=== PATIENT | female | born 1960 | race Caucasian/White ===

== ENCOUNTER → 2018-09-17 09:53 | Outpatient (CLI) | payer OTHER, SELFPAY ==
--- NOTE | 2018-09-17 09:59 | US_ITS ---
US breast RT complete, US breast LT complete Ordering Physician: Nitish Betancourt MD Patient Age: 58 years: Female HISTORY: ..Patient feels palpable area right breast 4:00 Additional/history , per technologist, states palpable areas bilateral &. 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 Bilateral mammogram from today & 2016 --BILATERAL BREAST ULTRASOUND including axillary survey ... RIGHT BREAST ULTRASOUND. No suspicious findings. No significant new findings 2 o'clock:: Tiny barely evident 3 mm debris-filled cyst appears smaller than previous study. . The palpable area at 4:00 was specifically survey. No suspicious findings here. No cyst or mass. Underlying rib contour conceivably could be palpable feature here as it is merely 1.3 cm deep to the skin on this image Axillary region survey demonstrate scattered benign-appearing lymph nodes. 2 longest thin left nodes measure nearly 2 cm length Thanks for covering ... LEFT BREAST ULTRASOUND.: 1 o'clock position central breast.: Thin elongated area of tissue vs less likely elongated solid nodule.. Benign appearance either case Measuring up to 16 mm length x 2.5 mm AP... Well-defined margins smooth appearanceI. Favor this is merely a linear area of glandular tissue not of significant concern.. But can be followed 9:00 small hypoechoic focus of tissue vs elongated cyst. Less likely elongated small solid nodule Small 4.7 mm mm length x 2 mm AP. Unimpressive. Follow-up adequate and recommended. . Axillary survey. Scattered benign appearing axillary lymph nodes. Again note the history of fibroadenomas in this patient but these questionable areas above are very unimpressive and can be followed . IMPRESSION: 1. No areas of significant concern on today's bilateral breast Ultrasound nor mammogram 2.. Left breast ultrasound.... No new areas of concern ... Scanning at the palpable area 4:00 reveals No breast abnormalities. I would note shallow rib contour here which is merely 1.3 cm beneath the skin at this point- possibly correlates with the palpable area?. Requires clinical correlation. 3. Right breast ultrasound. Scattered very small small benign-appearing areas can be followed. Based on imaging alone follow-up in one year the adequate. However if any clinically suspicious palpable mass should arise would suggest interval or short-term reevaluation. BI-RADS Category: 2 Benign Finding(s) RECOMMENDED FOLLOWUP: 12M 12 MONTH FOLLOW-UP (A letter has been sent to the patient regarding results of the study.)
--- NOTE | 2018-09-17 09:59 | MM_ITS ---
MM Dig screening mamm BI w/CAD ORDERING PHYSICIAN : Nitish Betancourt MD PATIENT AGE: 58 years GENDER: Female COMPARISON: 03/07/2017 & September 2005 INDICATION: Routine: SCREENING No hormones. No new complaints. Noncontributory family history. Patient has had a previous stereotactic biopsy left breast. TECHNIQUE: Standard CC and MLO images were obtained. R2 CAD reviewed. FINDINGS: The 2017 mammogram is additional mammogram is most helpful.... Prominent Diffuse regression/involution breast tissue with moderate fatty replacement of density since 2005 Stable fibroglandular pattern bilaterally since 2017 LEFT MAMMOGRAM no new findings of concern Metallic marker clips from previous stereotactic biopsy seen at upper-outer quadrant left breast as well as inferio/medial left breast . No new findings of concern. No dominant mass nor suspicious calcification. CAD computer review highlights no areas of concern either. RIGHT MAMMOGRAM: no significant new findings in the breast. Today's image includes several Moderate size right axillary lymph nodes. Period.. IMPRESSION: Stable mammogram since 2017 No new areas of concern Bilateral follow-up mammogram in one year BI-RADS Category: 2 Benign Finding(s) RECOMMENDED FOLLOW-UP: 1YR 1 YEAR FOLLOW-UP (A letter has been sent to the patient regarding results of the study.)
== END ==
PROVIDERS: PCP Family Medicine; Visit Provider Family Medicine
DX: Z12.31 Encounter for screening mammogram for malignant neoplasm of breast (principal); N63.10 Unspecified lump in the right breast, unspecified quadrant; Z86.018 Personal history of other benign neoplasm
CPT/HCPCS: 76641; 77067

== ENCOUNTER → 2018-12-07 14:05 | Outpatient (CLI) | payer OTHER, SELFPAY | PROVIDERS: Visit Provider Obstetrics & Gynecology | DX: N39.0 Urinary tract infection, site not specified (principal) | CPT/HCPCS: 87086; 87088; 87186 ==

== ENCOUNTER → 2019-03-05 15:44 | Outpatient (CLI) | payer OTHER, SELFPAY ==
--- NOTE | 2019-03-05 15:55 | CT_ITS ---
PROCEDURE: CT LUNG SCREENING CLINICAL INDICATION: HX OF NICOTINE DEPENDENCE 30+ pack-year smoking history, asymptomatic for lung cancer COMPARISON: No exams were available for comparison TECHNIQUE: The exam was performed on a GE Light Speed [address] scanner using 2.90 mGy CTDI. A low dose helical CT CHEST was performed on a multi-detector scanner. All CT scans at the facility use one or more dose reduction, viz: automated exposure control, ma/kV adjustment per patient size (including targeted exams where dose is matched to indication, i.e. head), or iterative reconstruction technique. The LDCT was performed in a facility that meets the criteria for the screening program. Data regarding this exam was submitted to ACR which is an approved registry. The order for this exam indicates that it came as a result of a lung cancer screening counseling shard decision-making visit that included all the elements required of such a visit including smoking cessation. The radiologist interpreting this exam meets the CMS criteria for the LDCT lung cancer screening program. The exam is reported using the Lung-RADS classification scale and reported to the ACR registry. NOTE: This study was performed for the specific purposes of lung cancer screening and is not an alternative to diagnostic chest CT. RADIATION DOSE: CTDI vol(CT dose Index-volume) = 2.90mG DLP (Dose Length Product) = 101.60 mGcm FINDINGS: Centrilobular emphysema. Old granulomatous disease. Scattered areas of scarring. No suspicious pulmonary nodules. OTHER FINDINGS: Minimal thickening of the pericardium IMPRESSION: Lung rads category 2 benign. Recommend screening LD CT in 12 months Dictated by: Buck Frausto MD 03/26/2019 10:46 Signed by: <Electronically signed by Buck Frausto MD in [place]> 03/26/2019 10:46
== END ==
PROVIDERS: PCP Family Medicine; Visit Provider Nurse Practitioner Family
DX: Z12.2 Encounter for screening for malignant neoplasm of respiratory organs (principal); Z87.891 Personal history of nicotine dependence

== ENCOUNTER → 2019-03-12 12:44 | Outpatient (CLI) | payer OTHER, SELFPAY ==
--- NOTE | 2019-03-12 12:47 | XR_ITS ---
PROCEDURE: XR SHOULDER RT MIN 2V CLINICAL INDICATION: right shoulder pain. surgery by Dr Henson in 2015. COMPARISON: No exams were available for comparison FINDINGS: There is a small curvilinear area of increased density along the inferior aspect of the glenoid. This is nonspecific and may be due to some articular or capsular calcification. No subacromial stenosis. No acute fracture or dislocation. IMPRESSION: Minimal periarticular calcification along the inferior aspect of the shoulder joint otherwise negative Dictated by: Buck Frausto MD 03/12/2019 13:42 Signed by: <Electronically signed by Buck Frausto MD in [place]> 03/12/2019 13:42
== END ==
PROVIDERS: PCP Family Medicine; Visit Provider Orthopaedic Surgery
DX: M25.511 Pain in right shoulder (principal)
CPT/HCPCS: 73030

== ENCOUNTER → 2019-03-21 14:12 | Outpatient (CLI) | payer OTHER, SELFPAY ==
--- NOTE | 2019-03-21 14:13 | MR_ITS ---
PROCEDURE: MR SHOULDER RT WO CON CLINICAL INDICATION: evaluate for rotator cuff tear Right shoulder pain with limited range of motion COMPARISON: UEAJW/ORT MRI-UP EXT ANY JNT W/O-RT from 01/02/2015 XR SHOULDER RT MIN 2V from 03/12/2019 TECHNIQUE: Routine multiplanar multi echo sequences are performed without contrast. FINDINGS: There are mild hypertrophic changes of the acromioclavicular joint with sub acromial fluid noted. There is some lobular isointense signal along the undersurface of the supraspinatus tendon. This could be related to a partial tear of the supraspinatus tendon with some retraction of the fibers. There is history of previous shoulder surgery and this could also be postsurgical change. A complete supraspinatus tendon tear is not felt to be present. There is moderate thinning of the infraspinatus tendon with increased T2 signal which has developed since the previous exam and may be related to partial tear of the infraspinatus. Long head of biceps tendon is in place. No obvious labral tear. There is a small shoulder joint effusion. Small amount of fluid is present both along posterior and deep aspect of the infraspinatus tendon. Small subarticular cyst is present along the inferior aspect of the glenoid. IMPRESSION: 1. Lobular signal intensity along the deep aspect of the supraspinatus tendon which may be due to partial tear with fiber retraction 2. Thinning of the infraspinatus tendon which has developed since the previous exams and may be related to partial tear. A complete tear is not felt to be present of either the supraspinatus or infraspinatus tendon. 3. Fluid present in the subacromial region as well as the shoulder joint and posterior and deep to the infraspinatus tendon. Dictated by: Buck Frausto MD 03/23/2019 14:55 Electronically signed by Buck Frausto MD in [place] 03/29/2019 09:36
== END ==
PROVIDERS: PCP Family Medicine; Visit Provider Orthopaedic Surgery
DX: M25.511 Pain in right shoulder (principal); G89.29 Other chronic pain
CPT/HCPCS: 73221

== ENCOUNTER → 2019-06-24 13:27 | Outpatient (POV) | payer MEDICARE, OTHER, SELFPAY ==
[2019-06-24 13:28] VITALS: BP 143/85; PULSE 91; RESP 18; O2SAT 99; BMI 21.2
--- NOTE | 2019-06-24 13:55 | HMH.PAINSOAP ---
[facility] Pain Management SOAP Note Subjective:: Patient is a pleasant 58-year-old white female who presents today for follow-up. Patient is here for right SI joint pain. Patient was seen in our clinic several years ago. She had multiple injections that she feels were not beneficial. Patient I had a long discussion in regards to her pain. Most of its on her right side radiating however it does not past her knee. She has radiation into her groin as well. She has a positive Shreyas's test Rimma test and SI joint compression test on the right side. Patient and I talked about multiple options we will get some diagnostic imaging because she does not have any at this time. Also start her on an anti-inflammatory. Patient on I discussed an SI joint belt. ROS General: no recent weight change, no fever, no sleep disturbances Respiratory: no cough, no shortness of air, no recurring pulmonary infections Cardiovascular/Peripheral Vascular: No chest pain, No palpitations, no edema, no shortness of breath. Gastrointestinal: no new onset incontinence, normal bowel movements reported Genitourinary: no new onset incontinence Musculoskeletal: Right SI joint pain Psychiatric: normal mood/ affect Neurological: [denies new onset weakness in extremities], [denies new onset balance issues] Objective:: Physical Exam General: Alert and oriented x3, no acute distress, pleasant and cooperative, [on room air] Lungs: Resps E/U, Symmetrical chest expansion, Eyes: PERRL Musculoskeletal: Flexion and extension of lumbar spine somewhat guarded secondary to pain, deep tendon reflexes normal, strength in upper and lower extremities [5/5], [abnormal gait noted] Neurological: speech clear, noodle maker equal, no gross sensory deficits Assessment:: Sacroiliitis Plan:: We will start the patient on diclofenac 75 mg 1 p.o. twice daily will also encourage her to get an SI joint belt. I will follow-up with her after her diagnostic imaging next week. She is instructed to call the office if she has any issues prior to her next appointment. Patient and I did discuss a corner lock procedure. She is in a look into this as well. Dr. Reyes has reviewed this note and agrees with this plan of care. This note was dictated using voice recognition software and may contain errors or omissions [facility] History I have reviewed the patient's past medical history: Yes Medical History: Reports:: Anxiety, Chronic Obstructive Pulmonary Disease (COPD), Gastroesophageal Reflux Disease(GERD), Hypertension, Lung Disease Denies:: Diabetes Mellitus Type 1, Diabetes Mellitus Type 2, Internal Pacemaker, Seizures *Have you ever received a pneumonia vaccine?: Yes *Have you received a flu vaccine this season?: Yes Laterality Cases: Other Surgeries: Yes: Colonoscopy, Hysterectomy-Partial, Other (ACDF). No: Pacemaker - *Social History Smoking Status: Current every day smoker Tobacco Type: cigarettes # Packs/Day (cigarettes): 1 Alcohol Intake: never Alcohol Intake Frequency:: holidays/special occasions only Substance Use Type: denies use *Occupational Status:: other *Travel in the last 8 weeks: None - Psychiatric History Pschychiatric History:: Reports:: Anxiety Family Hx:: No significant family history
--- NOTE | 2019-06-24 13:58 | P.CONS_ITS ---
[facility] Pain Management SOAP Note Subjective:: Patient is a pleasant 58-year-old white female who presents today for follow-up. Patient is here for right SI joint pain. Patient was seen in our clinic several years ago. She had multiple injections that she feels were not beneficial. Patient I had a long discussion in regards to her pain. Most of its on her right side radiating however it does not past her knee. She has radiation into her groin as well. She has a positive Shreyas's test Rimma test and SI joint compression test on the right side. Patient and I talked about multiple options we will get some diagnostic imaging because she does not have any at this time. Also start her on an anti-inflammatory. Patient on I discussed an SI joint belt. ROS General: no recent weight change, no fever, no sleep disturbances Respiratory: no cough, no shortness of air, no recurring pulmonary infections Cardiovascular/Peripheral Vascular: No chest pain, No palpitations, no edema, no shortness of breath. Gastrointestinal: no new onset incontinence, normal bowel movements reported Genitourinary: no new onset incontinence Musculoskeletal: Right SI joint pain Psychiatric: normal mood/ affect Neurological: [denies new onset weakness in extremities], [denies new onset balance issues] Objective:: Physical Exam General: Alert and oriented x3, no acute distress, pleasant and cooperative, [on room air] Lungs: Resps E/U, Symmetrical chest expansion, Eyes: PERRL Musculoskeletal: Flexion and extension of lumbar spine somewhat guarded secondary to pain, deep tendon reflexes normal, strength in upper and lower extremities [5/5], [abnormal gait noted] Neurological: speech clear, restrictive preparation operator equal, no gross sensory deficits Assessment:: Sacroiliitis Plan:: We will start the patient on diclofenac 75 mg 1 p.o. twice daily will also encourage her to get an SI joint belt. I will follow-up with her after her diagnostic imaging next week. She is instructed to call the office if she has any issues prior to her next appointment. Patient and I did discuss a corner lock procedure. She is in a look into this as well. Dr. Reyes has reviewed this note and agrees with this plan of care. This note was dictated using voice recognition software and may contain errors or omissions [facility] History I have reviewed the patient's past medical history: Yes Medical History: Reports:: Anxiety, Chronic Obstructive Pulmonary Disease (COPD), Gastroesophageal Reflux Disease(GERD), Hypertension, Lung Disease Denies:: Diabetes Mellitus Type 1, Diabetes Mellitus Type 2, Internal Pacemaker, Seizures *Have you ever received a pneumonia vaccine?: Yes *Have you received a flu vaccine this season?: Yes Laterality Cases: Other Surgeries: Yes: Colonoscopy, Hysterectomy-Partial, Other (ACDF). No: Pacemaker - *Social History Smoking Status: Current every day smoker Tobacco Type: cigarettes # Packs/Day (cigarettes): 1 Alcohol Intake: never Alcohol Intake Frequency:: holidays/special occasions only Substance Use Type: denies use *Occupational Status:: other *Travel in the last 8 weeks: None - Psychiatric History Pschychiatric History:: Reports:: Anxiety Family Hx:: No significant family history
== END ==
PROVIDERS: PCP Family Medicine; Visit Provider Clinical Nurse Specialist Family Health
DX: M25.559 Pain in unspecified hip (principal); M46.1 Sacroiliitis, not elsewhere classified
CPT/HCPCS: 99212

== ENCOUNTER → 2019-06-27 13:34 | Outpatient (CLI) | payer MEDICARE, OTHER, SELFPAY ==
--- NOTE | 2019-06-27 13:50 | XR_ITS ---
PROCEDURE: XR SACROILIAC JOINT BI MIN 3V CLINICAL INDICATION: HIP PAIN Right-sided pain COMPARISON: No exams were available for comparison FINDINGS: The SI joints have an unremarkable appearance. No sclerosis/effusion or lytic change evident. IMPRESSION: Negative SI joints Dictated by: Buck Frausto MD 06/27/2019 14:15 Electronically signed by Buck Frausto MD in [place] 06/27/2019 14:15
--- NOTE | 2019-06-27 13:50 | XR_ITS ---
PROCEDURE: XR HIP RT 2-3V W/PELVIS CLINICAL INDICATION: HIP PAIN Right hip pain COMPARISON: No exams were available for comparison FINDINGS: No fracture or dislocation is evident. No significant degenerative change. No lytic or blastic change. Unremarkable soft tissues. IMPRESSION: Negative right hip Dictated by: Buck Frausto MD 06/27/2019 14:15 Electronically signed by Buck Frausto MD in [place] 06/27/2019 14:15
== END ==
PROVIDERS: PCP Family Medicine; Visit Provider Clinical Nurse Specialist Family Health
DX: M25.551 Pain in right hip (principal); M53.3 Sacrococcygeal disorders, not elsewhere classified
CPT/HCPCS: 72202; 73502

== ENCOUNTER → 2019-07-01 12:53 | Outpatient (POV) | payer MEDICARE, OTHER, SELFPAY ==
[2019-07-01 13:08] VITALS: BP 128/83; PULSE 95; RESP 18; O2SAT 99; BMI 21.2
--- NOTE | 2019-07-01 13:35 | HMH.PAINSOAP ---
[facility] Pain Management SOAP Note Subjective:: Patient is a pleasant 58-year-old white female who presents today for follow-up. At last visit patient was started on diclofenac 75 mg 1 p.o. twice daily and given an SI joint belt. Patient has been wearing this. Her pain today is a 6 out of 10. She is also having neck pain. When a long discussion in regards to a neurostimulator and coronary lock procedure. I do believe that she would be a good neurostimulator candidate with realistic goals. We had a long discussion in regards to [employer] system. She is going go home and think about this. ROS General: no recent weight change, no fever, no sleep disturbances Respiratory: no cough, no shortness of air, no recurring pulmonary infections Cardiovascular/Peripheral Vascular: No chest pain, No palpitations, no edema, no shortness of breath. Gastrointestinal: no new onset incontinence, normal bowel movements reported Genitourinary: no new onset incontinence Musculoskeletal: Neck pain, low back and right leg pain Psychiatric: normal mood/ affect Neurological: [denies new onset weakness in extremities], [denies new onset balance issues] Objective:: Physical Exam General: Alert and oriented x3, no acute distress, pleasant and cooperative, [on room air] Lungs: Resps E/U, Symmetrical chest expansion, Eyes: PERRL Musculoskeletal: Flexion and extension of cervical and lumbar spine somewhat guarded secondary to pain, deep tendon reflexes normal, strength in upper and lower extremities [5/5], [abnormal gait noted] Neurological: speech clear, starchmaker equal, no gross sensory deficits Assessment:: Sacroiliitis, postlaminectomy syndrome cervical spine Plan:: We will see the patient back in 1 month start her on gabapentin 100 mg 1 p.o. nightly. I will follow-up with her in 1 month reassess her symptoms she has been instructed to call the office if she has any issues prior to her next appointment. If she decides she would like to move forward with a neurostimulator. She is in a call our office to set up a psychological evaluation. Dr. Reyes has reviewed this note and agrees with this plan of care. This note was dictated using voice recognition software and may contain errors or omissions [facility] History I have reviewed the patient's past medical history: Yes Medical History: Reports:: Anxiety, Chronic Obstructive Pulmonary Disease (COPD), Gastroesophageal Reflux Disease(GERD), Hypertension, Lung Disease Denies:: Diabetes Mellitus Type 1, Diabetes Mellitus Type 2, Internal Pacemaker, Seizures *Have you ever received a pneumonia vaccine?: Yes *Have you received a flu vaccine this season?: Yes Laterality Cases: Other Surgeries: Yes: Colonoscopy, Hysterectomy-Partial, Other (ACDF). No: Pacemaker - *Social History Smoking Status: Current every day smoker Tobacco Type: cigarettes # Packs/Day (cigarettes): 1 Alcohol Intake: never Alcohol Intake Frequency:: holidays/special occasions only Substance Use Type: denies use *Occupational Status:: other *Travel in the last 8 weeks: None - Psychiatric History Pschychiatric History:: Reports:: Anxiety Family Hx:: No significant family history
--- NOTE | 2019-07-01 13:38 | P.CONS_ITS ---
[facility] Pain Management SOAP Note Subjective:: Patient is a pleasant 58-year-old white female who presents today for follow-up. At last visit patient was started on diclofenac 75 mg 1 p.o. twice daily and given an SI joint belt. Patient has been wearing this. Her pain today is a 6 out of 10. She is also having neck pain. When a long discussion in regards to a neurostimulator and coronary lock procedure. I do believe that she would be a good neurostimulator candidate with realistic goals. We had a long discussion in regards to [employer] system. She is going go home and think about this. ROS General: no recent weight change, no fever, no sleep disturbances Respiratory: no cough, no shortness of air, no recurring pulmonary infections Cardiovascular/Peripheral Vascular: No chest pain, No palpitations, no edema, no shortness of breath. Gastrointestinal: no new onset incontinence, normal bowel movements reported Genitourinary: no new onset incontinence Musculoskeletal: Neck pain, low back and right leg pain Psychiatric: normal mood/ affect Neurological: [denies new onset weakness in extremities], [denies new onset balance issues] Objective:: Physical Exam General: Alert and oriented x3, no acute distress, pleasant and cooperative, [on room air] Lungs: Resps E/U, Symmetrical chest expansion, Eyes: PERRL Musculoskeletal: Flexion and extension of cervical and lumbar spine somewhat guarded secondary to pain, deep tendon reflexes normal, strength in upper and lower extremities [5/5], [abnormal gait noted] Neurological: speech clear, buttonhole maker hand equal, no gross sensory deficits Assessment:: Sacroiliitis, postlaminectomy syndrome cervical spine Plan:: We will see the patient back in 1 month start her on gabapentin 100 mg 1 p.o. nightly. I will follow-up with her in 1 month reassess her symptoms she has been instructed to call the office if she has any issues prior to her next appointment. If she decides she would like to move forward with a neurostimulator. She is in a call our office to set up a psychological evaluation. Dr. Reyes has reviewed this note and agrees with this plan of care. This note was dictated using voice recognition software and may contain errors or omissions [facility] History I have reviewed the patient's past medical history: Yes Medical History: Reports:: Anxiety, Chronic Obstructive Pulmonary Disease (COPD), Gastroesophageal Reflux Disease(GERD), Hypertension, Lung Disease Denies:: Diabetes Mellitus Type 1, Diabetes Mellitus Type 2, Internal Pacemaker, Seizures *Have you ever received a pneumonia vaccine?: Yes *Have you received a flu vaccine this season?: Yes Laterality Cases: Other Surgeries: Yes: Colonoscopy, Hysterectomy-Partial, Other (ACDF). No: Pacemaker - *Social History Smoking Status: Current every day smoker Tobacco Type: cigarettes # Packs/Day (cigarettes): 1 Alcohol Intake: never Alcohol Intake Frequency:: holidays/special occasions only Substance Use Type: denies use *Occupational Status:: other *Travel in the last 8 weeks: None - Psychiatric History Pschychiatric History:: Reports:: Anxiety Family Hx:: No significant family history
== END ==
PROVIDERS: PCP Family Medicine; Visit Provider Clinical Nurse Specialist Family Health
DX: M46.1 Sacroiliitis, not elsewhere classified (principal); M96.1 Postlaminectomy syndrome, not elsewhere classified
CPT/HCPCS: 99212

== ENCOUNTER → 2019-08-19 11:05 | Outpatient (POV) | payer MEDICARE, OTHER, SELFPAY ==
[2019-08-19 11:50] VITALS: BP 123/72; PULSE 98; RESP 18; O2SAT 99; BMI 21.2
--- NOTE | 2019-08-19 16:11 | P.CONS_ITS ---
[facility] Pain Management SOAP Note Subjective:: Patient is a pleasant 59-year-old white female who presents today for follow-up. Patient rates her pain today a 10 out of 10. Mostly in her neck and arm secondary to postlaminectomy syndrome. Patient also has chronic sacroiliitis. She and I have had a long talk about neurostimulator and she would like to proceed with this. Patient and I discussed realistic goals along with preparation. Patient is currently on diclofenac gabapentin and Voltaren gel. Patient understands the need for psychological evaluation prior to her neurostimulator trial. Patient is tried and failed injection therapy, anti- inflammatories, medications. ROS General: no recent weight change, no fever, no sleep disturbances Respiratory: no cough, no shortness of air, no recurring pulmonary infections Cardiovascular/Peripheral Vascular: No chest pain, No palpitations, no edema, no shortness of breath. Gastrointestinal: no new onset incontinence, normal bowel movements reported Genitourinary: no new onset incontinence Musculoskeletal: Neck pain, arm pain SI joint pain Psychiatric: normal mood/ affect Neurological: [denies new onset weakness in extremities], [denies new onset balance issues] Objective:: Physical Exam General: Alert and oriented x3, no acute distress, pleasant and cooperative, [on room air] Lungs: Resps E/U, Symmetrical chest expansion, Eyes: PERRL Musculoskeletal: Flexion and extension of cervical spine somewhat guarded secondary to pain, deep tendon reflexes normal, strength in upper and lower extremities [5/5], [abnormal gait noted] positive Rimma test SI joint compression test and Shreyas's test on the right side Neurological: speech clear, dry mill operator equal, no gross sensory deficits Assessment:: Degenerative disc disease lumbar spine with lumbar radiculopathy and sacroiliitis, postlaminectomy syndrome Plan:: We will plan a Medtronic neurostimulator trial for her cervical pain. We will also set her up for a right SI joint compression test. We will send her for psychological evaluation. We will increase her gabapentin to 300 mg nightly. I will follow-up with her after her psychological evaluation. Dr. Reyes has reviewed this note and agrees with this plan of care. This note was dictated using voice recognition software and may contain errors or omissions [facility] History I have reviewed the patient's past medical history: Yes Medical History: Reports:: Anxiety, Chronic Obstructive Pulmonary Disease (COPD), Gastroesophageal Reflux Disease(GERD), Hypertension, Lung Disease Denies:: Diabetes Mellitus Type 1, Diabetes Mellitus Type 2, Internal Pacemaker, Seizures *Have you ever received a pneumonia vaccine?: Yes *Have you received a flu vaccine this season?: Yes Laterality Cases: Left: Breast Biopsy, Other, Right: Arthroscopy Shoulder Other Surgeries: Yes: Colonoscopy, Hysterectomy-Partial, Other (ACDF). No: Pacemaker - *Social History Smoking Status: Current every day smoker Tobacco Type: cigarettes # Packs/Day (cigarettes): 1 Alcohol Intake: current Alcohol Intake Frequency:: holidays/special occasions only Substance Use Type: denies use *Occupational Status:: other *Travel in the last 8 weeks: None - Psychiatric History Pschychiatric History:: Reports:: Anxiety Family Hx:: No significant family history
== END ==
PROVIDERS: PCP Family Medicine; Visit Provider Clinical Nurse Specialist Family Health
DX: M51.16 Intervertebral disc disorders with radiculopathy, lumbar region (principal); M46.1 Sacroiliitis, not elsewhere classified; M96.1 Postlaminectomy syndrome, not elsewhere classified; J44.9 Chronic obstructive pulmonary disease, unspecified; Z72.0 Tobacco use; I10 Essential (primary) hypertension
CPT/HCPCS: 99212

== ENCOUNTER → 2019-11-11 12:58 | Outpatient (POV) | payer MEDICARE, SELFPAY ==
[2019-11-11 13:15] VITALS: BP 147/88; PULSE 95; RESP 18; TEMP 36.8; O2SAT 98; BMI 21.2
--- NOTE | 2019-11-11 13:32 | HMH.PAINSOAP ---
[facility] Pain Management SOAP Note Subjective:: Patient is a pleasant 59-year-old white female who presents today for follow-up. Patient is currently in the process of working towards a neurostimulator. She has tried and failed injection therapy anti-inflammatories and medication. She has postlaminectomy syndrome of the cervical spine. Patient has radiculopathy in bilateral arms. Patient is unable to handle gabapentin we discussed switching to Lyrica. We will do this. She rates her pain today at 8 out of 10. ROS General: no recent weight change, no fever, no sleep disturbances Respiratory: no cough, no shortness of air, no recurring pulmonary infections Cardiovascular/Peripheral Vascular: No chest pain, No palpitations, no edema, no shortness of breath. Gastrointestinal: no new onset incontinence, normal bowel movements reported Genitourinary: no new onset incontinence Musculoskeletal: Neck pain, arm pain Psychiatric: normal mood/ affect, Neurological: [denies new onset weakness in extremities], [denies new onset balance issues] Objective:: Physical Exam General: Alert and oriented x3, no acute distress, pleasant and cooperative, [on room air] Lungs: Resps E/U, Symmetrical chest expansion, Eyes: PERRL Musculoskeletal: Flexion and extension of cervical spine somewhat guarded secondary to pain, deep tendon reflexes normal, strength in upper and lower extremities [5/5], slightly antalgic gait noted Neurological: speech clear, needle loom operator helper equal, no gross sensory deficits Assessment:: Postlaminectomy syndrome cervical spine with cervical radiculopathy Plan:: We will send the patient for psychological evaluation to determine if she is a candidate for a neurostimulator if she is we will move forward with a Medtronic cervical stimulator trial. I will follow-up after this reassess her symptoms at that time she has been instructed to call the office if she has any issues prior to her next appointment. Dr. Reyes has reviewed this note and agrees with this plan of care. This note was dictated using voice recognition software and may contain errors or omissions we specifically discussed risk factors for Covid-19 including age, heart or lung disease, diabetes, immunosuppression and travel. We also discussed that NSAIDs may worsen Covid-19 infection symptoms and that they should not be used to treat Covid-19 symptoms. Patient was also informed that corticosteroids in any form oral or injectable will decrease immune response and may increase risk of Covid-[address] Reyse has reviewed this patient's chart and this note and agrees with plan of care. Patient has been instructed to call the office if they have any issues prior to the next appointment. [facility] History I have reviewed the patient's past medical history: Yes Medical History: Reports:: Anxiety, Chronic Obstructive Pulmonary Disease (COPD), Gastroesophageal Reflux Disease(GERD), Hypertension, Lung Disease Denies:: Cancer, Diabetes Mellitus Type 1, Diabetes Mellitus Type 2, Internal Pacemaker, Seizures *Have you ever received a pneumonia vaccine?: Yes *Have you received a flu vaccine this season?: Yes Laterality Cases: Left: Breast Biopsy, Other, Right: Arthroscopy Shoulder Other Surgeries: Yes: Colonoscopy, Hysterectomy-Partial, Other (ACDF). No: Pacemaker Amputation: No Fractures: No - *Social History Smoking Status: Current every day smoker Tobacco Type: cigarettes # Packs/Day (cigarettes): 1 Alcohol Intake: current Alcohol Intake Frequency:: holidays/special occasions only Substance Use Type: denies use *Occupational Status:: other *Travel in the last 8 weeks: None - Psychiatric History Pschychiatric History:: Reports:: Anxiety Family Hx:: No significant family history
== END ==
PROVIDERS: PCP Family Medicine; Visit Provider Clinical Nurse Specialist Family Health
DX: M96.1 Postlaminectomy syndrome, not elsewhere classified (principal); M50.10 Cervical disc disorder with radiculopathy, unspecified cervical region; J44.9 Chronic obstructive pulmonary disease, unspecified; Z72.0 Tobacco use; K21.9 Gastro-esophageal reflux disease without esophagitis; I10 Essential (primary) hypertension
CPT/HCPCS: 99212

== ENCOUNTER → 2019-12-23 09:32 | Outpatient (POV) | payer MEDICARE, SELFPAY ==
[2019-12-23 10:05] VITALS: BP 137/77; PULSE 86; RESP 18; TEMP 36.6; O2SAT 99; BMI 21.2
--- NOTE | 2019-12-23 13:11 | HMH.PAINSOAP ---
[facility] Pain Management SOAP Note Subjective:: Patient is a pleasant 59-year-old white female who presents today for follow-up. She is currently in the process working towards a neurostimulator. She has had her psychological evaluation. She is tried and failed injection therapy anti-inflammatories and medication. She is has postlaminectomy syndrome of the cervical spine. She is radiculopathy in bilateral arms. She is unable to handle gabapentin. She is on Lyrica 75 mg 1 p.o. nightly. Patient and I discussed utilizing a small amount of tramadol until her trial. She rates her pain an 8 out of 10. She is not on any anticoagulation therapy. ROS General: no recent weight change, no fever, no sleep disturbances Respiratory: no cough, no shortness of air, no recurring pulmonary infections Cardiovascular/Peripheral Vascular: No chest pain, No palpitations, no edema, no shortness of breath. Gastrointestinal: no new onset incontinence, normal bowel movements reported Genitourinary: no new onset incontinence Musculoskeletal: Neck pain, arm pain Psychiatric: normal mood/ affect Neurological: [denies new onset weakness in extremities], [denies new onset balance issues] Objective:: Physical Exam General: Alert and oriented x3, no acute distress, pleasant and cooperative, [on room air] Lungs: Resps E/U, Symmetrical chest expansion, Eyes: PERRL Musculoskeletal: Flexion and extension of cervical spine somewhat guarded secondary to pain, deep tendon reflexes normal, strength in upper and lower extremities [5/5], normal gait noted Neurological: speech clear, tier lift truck operator equal, no gross sensory deficits Assessment:: Postlaminectomy syndrome cervical spine with cervical radiculopathy Plan:: We will set the patient up for [employer] cervical neurostimulator trial. We will follow-up with the patient after this reassess her symptoms at that time she has been instructed to call the office if she has any issues prior to her next appointment. We did discuss realistic goal setting. Dr. Reyes has reviewed this note and agrees with this plan of care. This note was dictated using voice recognition software and may contain errors or omissions [facility] History I have reviewed the patient's past medical history: Yes Medical History: Reports:: Anxiety, Chronic Obstructive Pulmonary Disease (COPD), Gastroesophageal Reflux Disease(GERD), Hypertension, Lung Disease Denies:: Cancer, Diabetes Mellitus Type 1, Diabetes Mellitus Type 2, Internal Pacemaker, Seizures *Have you ever received a pneumonia vaccine?: Yes *Have you received a flu vaccine this season?: Yes Laterality Cases: Left: Breast Biopsy, Other, Right: Arthroscopy Shoulder Other Surgeries: Yes: Colonoscopy, Hysterectomy-Partial, Other (ACDF). No: Pacemaker Amputation: No Fractures: No - *Social History Smoking Status: Current every day smoker Tobacco Type: cigarettes # Packs/Day (cigarettes): 1 Alcohol Intake: current Alcohol Intake Frequency:: holidays/special occasions only Substance Use Type: denies use *Occupational Status:: other *Travel in the last 8 weeks: None - Psychiatric History Pschychiatric History:: Reports:: Anxiety Family Hx:: No significant family history
== END ==
PROVIDERS: PCP Family Medicine; Visit Provider Clinical Nurse Specialist Family Health
DX: M96.1 Postlaminectomy syndrome, not elsewhere classified (principal); M50.10 Cervical disc disorder with radiculopathy, unspecified cervical region
CPT/HCPCS: 99212

== ENCOUNTER → 2020-01-16 11:17 | Outpatient (CLI) | payer MEDICARE, SELFPAY ==
[2020-01-16 13:36] LABS: Coronavirus 19 IgG Antibody Negative (Negative); Coronavirus 19 IgM Antibody Negative (Negative)
== END ==
PROVIDERS: Visit Provider Anesthesiology
DX: Z01.818 Encounter for other preprocedural examination (principal)
CPT/HCPCS: 36415; 86328

== ENCOUNTER 2020-01-17 07:28 | Day surgery (SDC) | payer MEDICARE, SELFPAY ==
--- NOTE | 2020-01-15 11:58 | SUR.PREOP ---
01/15/2020 @ 1200--PHONE CALL MADE TO PATIENT. PATIENT UNDERSTANDS THAT LAB WORK AND COVID TESTING NEEDS TO BE COMPLETED @ 1100 ON 01/16/2020. PATIENT UNDERSTANDS IF LAB WORK AND COVID-19 TESTS ARE NOT COMPLETED BY 12PM ON THAT DATE, THE SURGERY SCHEDULED WILL BE CANCELLED AND RESCHEDULED FOR ANOTHER TIME.
[2020-01-15 12:38] VITALS: BMI 21.2
[2020-01-17] VITALS (7 sets, daily range): BP systolic 111–154; BP diastolic 61–93; PULSE 79–91; RESP 20; TEMP 36.3–36.6; O2SAT 95–98
[2020-01-17 08:10] LABS: Chloride 110 mmol/L (98-107)
[2020-01-17 08:11] LABS: Potassium 4.2 mmoL/L (3.5-5.1); Sodium 140 mmol/L (136-145)
[2020-01-17 08:14] LABS: Anion Gap 13.2 mEq/L (5-15); Blood Urea Nitrogen 9 mg/dl (7-17); Calcium 8.9 mg/dl (8.4-10.2); Carbon Dioxide 21 mmol/L (22.0-30.0); Creatinine Clearance Estimated 76 mL/min (50-200); Estimated Glomerular Filt Rate 86 ml/min (>60); GFR (African American) 104 ML/MIN (>60); Glucose 97 mg/dl (74-100)
[2020-01-17 08:30] LABS: Basophils # 0.1 K/mm3 (0-0.2); Basophils % 1.3 % (0.1-2.0); Eosinophils # 0.2 K/mm3 (0.0-0.4); Eosinophils % 3.3 % (0.1-12.0); Hematocrit 44.8 % (37.0-47.0); Hemoglobin 15.3 g/dL (12.2-16.2); Lymphocytes # 2.5 K/mm3 (0.7-4.5); Lymphocytes % 36.9 % (10-50); Mean Corpuscular HGB Conc 34.2 g/dL (31.8-35.4); Mean Corpuscular Hemoglobin 31.7 pg (27.0-31.2); Mean Corpuscular Volume 92.7 fl (81-99); Mean Platelet Volume 7.3 fl (7.4-10.4); Monocytes # 0.3 K/mm3 (0.1-1.0); Monocytes % 4.5 % (1.7-9.3); Neutrophils # 3.6 K/mm3 (1.8-7.8); Platelet Count 303 K/mm3 (142-424); Red Blood Count 4.83 M/mm3 (4.20-5.40); Red Cell Distribution Width 13.5 % (11.5-17.5); White Blood Count 6.7 K/mm3 (4.8-10.8)
--- NOTE | 2020-01-17 08:58 | P.OP_ITS ---
Date of procedure: 01/17/20 Pre-op Diagnosis:: Postlaminectomy syndrome of the cervical spine with cervical radiculopathy symptoms Post-op Diagnosis:: Same Procedure performed:: Spinal cord stimulator trial with epidural lead placement x2 Surgeon:: Ajay Reyes MD SUPPOSITORY MOLDING MACHINE OPERATOR:: Breezy Tello Anesthesia: MAC Estimated blood loss (mL): 1 Clinical Note:: This patient is a pleasant 59-year-old white female who we are treating for neck pain with cervical radiculopathy symptoms. She is failed all previous therapies including surgery, injections, physical therapy and oral medications. She is currently on Lyrica 75 mg at night. She is unable to handle gabapentin. Most of her pain is in her neck rating down her right arm. She has had a successful psychological evaluation. We will do a spinal cord stimulator trial today to see if this will help with her pain symptoms. Operative findings:: None Operative note:: Informed consent was obtained and the risk and benefits of the procedure were explained to the patient. Patient was taken to the operating room placed prone on the procedure table. She was prepped and draped in sterile fashion. C-arm fluoroscopy was used to view the lumbar spine. The skin and subcutaneous tissues were anesthetized using lidocaine. A 17-gauge epidural needle was in serted and advanced into the L2-L3 interspace. After confirmation of needle placement in the epidural space stimulating lead was inserted and advanced very easily to the C4-C5-C6 vertebral bodies. Lead placement was checked in AP and lateral views. A second needle was then inserted and advanced again into the L2-L3 interspace. Again after confirmation of needle placement in the epidural space a stimulating lead was inserted and again advanced very easily to the C4-C5-C6 vertebral bodies. Lead placement again was checked in AP and lateral views. The needles were removed. The leads were secured in place. The patient was taken recovery in stable condition. The patient tolerated the procedure well with no complications. She was programmed by the [employer] claim representative with good relief of pain symptoms and stimulation in all areas. Patient was discharged home neurologically intact with good relief of pain symptoms. Plan and disposition: We will follow-up with this patient in 3 days for reprogramming. We will follow-up in 1 week for lead pull. If this patient has any problems or questions she is to call us back in the pain clinic. Condition: stable Disposition: PACU Complications:: None
--- NOTE | 2020-01-17 09:08 | P.PN_ITS ---
[facility] Anesthesia Checklist - Patient Identification Patient Identification: Arm Band, Verbal (Name & ) - Structural Data Admitted From: Home Planned Operative Procedure/s: Neurostimulator Consent for Planned Operative Procedure(s) Verified: Yes Verified Documents: Surgical Consent, History and Physical - NPO Status Verified Time NPO: 21:00 - Chart Verification Results Verified: CBC, BMP - Additional verifications Anesthesia Reactions: No Hx Blood Transfusions: No Blood Transfusion Reaction: No - Airway Assessment C-Spine Mobility Assessed: Yes (MP 2) TMJ Mobility Assessed: Yes - Neurological Assessment Level of Consciousness: Awake, Alert, Appropriate, Follows Commands Hx Seizures: No Numbness or tingling in extremities: No - Anesthesia Plan Anesthesia Risk discussed: Yes Anesthesia Plan: Verified ASA Class: III Anesthesia Type: MAC [facility] History I have reviewed the patient's past medical history: Yes Medical History: Reports:: Anxiety, Asthma, Chronic Obstructive Pulmonary Disease (COPD), Gastroesophageal Reflux Disease(GERD), Hypertension, Lung Disease Denies:: Cancer, Diabetes Mellitus Type 1, Diabetes Mellitus Type 2, Internal Pacemaker, MRSA, Seizures *Have you ever received a pneumonia vaccine?: No *Have you received a flu vaccine this season?: No Other Medical History: Denies: Blood Transfusion Reaction Anesthesia experience/problems:: No prior complications Laterality Cases: Left: Breast Biopsy, Other, Right: Arthroscopy Shoulder Other Surgeries: Yes: Colonoscopy, Hysterectomy-Partial, Other (ACDF). No: Pacemaker Amputation: No Fractures: No - *Social History Educational Level: Completed High School Smoking Status: Current every day smoker Tobacco Type: cigarettes # Packs/Day (cigarettes): 1 Alcohol Intake: never Alcohol Intake Frequency:: holidays/special occasions only Substance Use Type: denies use *Occupational Status:: retired Housing: house *Travel in the last 8 weeks: None - Psychiatric History Pschychiatric History:: Reports:: Anxiety Family Hx:: No significant family history
== END 2020-01-17 12:10 | disposition home or self-care (01) ==
LOC: OR 07:29
PROVIDERS: PCP Family Medicine; Visit Provider Anesthesiology
PROC: (CPT 63650; principal; 2020-01-17 09:00)
DX: M96.1 Postlaminectomy syndrome, not elsewhere classified (principal); M50.10 Cervical disc disorder with radiculopathy, unspecified cervical region; F41.9 Anxiety disorder, unspecified; J45.909 Unspecified asthma, uncomplicated; J44.9 Chronic obstructive pulmonary disease, unspecified; K21.9 Gastro-esophageal reflux disease without esophagitis; I10 Essential (primary) hypertension; Z87.39 Personal history of other diseases of the musculoskeletal system and connective tissue; Z79.890 Hormone replacement therapy; Z79.51 Long term (current) use of inhaled steroids; Z79.899 Other long term (current) drug therapy
CPT/HCPCS: 63650; 80048; 85025; 96374; C1778; J3370; Q9966

== ENCOUNTER → 2020-01-23 09:52 | Outpatient (POV) | payer MEDICARE, SELFPAY ==
[2020-01-23 10:06] VITALS: BP 128/82; PULSE 88; RESP 18; O2SAT 99; BMI 21.2
--- NOTE | 2020-01-23 10:10 | HMH.PMPROC ---
- Procedure Date: 01/23/20 Time: 10:10 Anesthesiologist:: Lizz Anguiano APRN Complications:: None Pre-procedure Diagnosis:: Procedure: Stimulator trial lead removal Provider: Lizz Anguiano APRN Complications: None Preprocedure diagnosis:[Degenerative disc disease lumbar spine with lumbar radiculopathy symptoms, and postlaminectomy syndrome cervical spine Postprocedure diagnosis: Same Post-procedure Diagnosis:: Same Indications for Procedure:: Indications: Patient is a pleasant 59-year-old white female who presents today for follow-up after spinal cord stimulator trial. She is being treated for neck pain with cervical radiculopathy symptoms and postlaminectomy syndrome cervical spine. She will have her leads removed today. Patient says that she got approximately 95% relief during her trial. She says she was able to sleep on her right side, which is something she is not been able to do in many many years. She says that she is excited to undergo the implant to get some relief. She did undergo conservative therapies which did not give her long-term relief. She also had a psychological evaluation and was deemed an appropriate candidate for spinal cord stimulation. She is tried physical therapy along with injections and anti-inflammatories. She has also tried oral medications. She is currently on tramadol 50 mg 1 tablet p.o. 3 times daily. She uses ice and heat therapies. Her Richard #[id number] has been reviewed and is appropriate. Her urine drug screens have been appropriate. Her morphine equivalent is 15. Patient does rate her pain a 2 out of 10 with the trial. She is ready to proceed with with the implant. Physical exam General: Alert and oriented x3, no acute distress, pleasant and cooperative, [on room air] Lungs: Respirations even and unlabored, symmetrical chest expansion Eyes: PERRL Musculoskeletal: Flexion and extension of lumbar spine somewhat guarded secondary to pain, deep tendon reflexes normal, strength in upper and lower extremities there on Monday., did not Neurological: Speech clear, life science research assistant equal, no gross sensory deficit Procedure Details:: Procedure in detail: Informed consent was obtained. The risks and benefits of the procedure were explained to the patient. The patient was taken to the procedure room where noninvasive monitors were placed, including noninvasive blood pressure cuff and pulse oximeter. The area around the leads was examined and there were no signs or symptoms of infection. The skin was cleansed using chlorhexidine around the trial leads. Both leads were removed without incident. Leads were complete and intact. Dressing was placed. Patient tolerated the procedure well with no complications. Plan and Disposition:: Plan and disposition: We will schedule the patient for the [employer] implant. She did get up to 95% relief during her trial. Patient is not on any anticoagulation therapy. She did have a successful trial and has tried conservative therapies and failed. We will see her back in the clinic after her implant to reassess her symptoms. She has been instructed to contact clinic if she has any concerns before her next appointment. Dr. Reyes has reviewed this note and agrees with this plan of care. This note was dictated using voice recognition software and make contain errors or omissions. The patient and I specifically discussed risk factors for COVID19. These risks include, but are not limited to age greater than 60, heart or lung disease, diabetes, immunosuppression, and travel. We also discussed NSAIDs may worsen COVID19 infection or symptoms. Patient should not use NSAIDs to treat COVID19 signs or symptoms. Patient was also informed that any type of corticosteroid of any form (oral or injection) will decrease the patient's immune system response and may increase the likelihood of COVID19 infection and symptoms.
== END ==
PROVIDERS: PCP Family Medicine; Visit Provider Clinical Nurse Specialist Family Health
DX: M51.16 Intervertebral disc disorders with radiculopathy, lumbar region (principal); M96.1 Postlaminectomy syndrome, not elsewhere classified
CPT/HCPCS: 99212

== ENCOUNTER → 2020-02-04 10:26 | Outpatient (CLI) | payer MEDICARE, SELFPAY ==
[2020-02-04 11:04] LABS: Basophils # 0.1 K/mm3 (0-0.2); Basophils % 0.9 % (0.1-2.0); Eosinophils # 0.3 K/mm3 (0.0-0.4); Eosinophils % 3.4 % (0.1-12.0); Hematocrit 46.5 % (37.0-47.0); Hemoglobin 15.5 g/dL (12.2-16.2); Lymphocytes # 1.8 K/mm3 (0.7-4.5); Lymphocytes % 23.6 % (10-50); Mean Corpuscular HGB Conc 33.4 g/dL (31.8-35.4); Mean Corpuscular Volume 92.9 fl (81-99); Mean Platelet Volume 7.2 fl (7.4-10.4); Monocytes # 0.3 K/mm3 (0.1-1.0); Monocytes % 4.2 % (1.7-9.3); Neutrophils # 5.2 K/mm3 (1.8-7.8); Neutrophils % 67.9 % (37.0-80.0); Platelet Count 369 K/mm3 (142-424); Red Cell Distribution Width 13.4 % (11.5-17.5); White Blood Count 7.6 K/mm3 (4.8-10.8)
[2020-02-04 12:22] LABS: Chloride 101 mmol/L (98-107); Sodium 137 mmol/L (136-145)
[2020-02-04 12:23] LABS: Potassium 3.9 mmoL/L (3.5-5.1)
[2020-02-04 12:25] LABS: Anion Gap 11.9 mEq/L (5-15); Blood Urea Nitrogen 10 mg/dl (7-17); Carbon Dioxide 28 mmol/L (22.0-30.0); Estimated Glomerular Filt Rate 86 ml/min (>60); GFR (African American) 104 ML/MIN (>60)
[2020-02-04 12:26] LABS: Calcium 9.3 mg/dl (8.4-10.2); Glucose 85 mg/dl (74-100)
[2020-02-04 13:46] LABS: Coronavirus 19 IgG Antibody Negative (Negative); Coronavirus 19 IgM Antibody Negative (Negative)
== END ==
PROVIDERS: Visit Provider Anesthesiology
DX: Z01.818 Encounter for other preprocedural examination (principal)
CPT/HCPCS: 36415; 80048; 85025; 86328

== ENCOUNTER 2020-02-05 08:40 | Day surgery (SDC) | payer MEDICARE, SELFPAY ==
[2020-02-03 11:06] VITALS: BMI 20.7
[2020-02-05] VITALS (7 sets, daily range): BP systolic 116–147; BP diastolic 69–82; PULSE 68–84; RESP 18; TEMP 36.2–36.8; O2SAT 94–98
--- NOTE | 2020-02-05 09:43 | HMH.PMCON ---
Assessment and Plan - Assessment and plan all Dx Assessment and Plan for all problems:: Impression-degenerative disc disease of the lumbar spine with radiculopathy, Plan-placement of pain stimulator system today HPI - Data of Consult Patient: new to practice Requesting Physician: Ajay Reyes MD Primary Care Provider: Nitish Betancourt MD - Consult Narrative History of present illness: Ms. Berry is a 59 year old female with degenerative disc disease of the lumbar spine with radiculopathy as well as having had cervical fusion. Patient had persistence of back pain and despite injections, therapy etc. she has had no improvement in her pain symptoms. Patient had a pain stimulator trial with significant improvement in her symptoms and increased activity and she comes in today for placement of that system CC: Ajay Reyes MD Back pain [facility] History Medical History: Reports:: Anxiety, Asthma, Chronic Obstructive Pulmonary Disease (COPD), Gastroesophageal Reflux Disease(GERD), Hypertension, Lung Disease Denies:: Cancer, Diabetes Mellitus Type 1, Diabetes Mellitus Type 2, Internal Pacemaker, MRSA, Seizures *Have you ever received a pneumonia vaccine?: Yes *Have you received a flu vaccine this season?: No Other Medical History: Denies: Blood Transfusion Reaction Comment:: Illnesses-cigarette usage, hypertension, asthma/COPD, GERD, chronic back pain, anxiety and depression Laterality Cases: Left: Breast Biopsy, Other, Right: Arthroscopy Shoulder Other Surgeries: Yes: Colonoscopy, Hysterectomy-Partial, Other (ACDF). No: Pacemaker Amputation: No Fractures: Yes Comment: Operations-cervical fusion, hysterectomy, right shoulder arthroscopy, left elbow surgery, right ankle surgery - *Social History Last grade of school completed: High school graduate Smoking Status: Current every day smoker Tobacco Type: cigarettes # Packs/Day (cigarettes): 1 Alcohol Intake: current Alcohol Intake Frequency:: a few times a month Substance Use Type: denies use *Occupational Status:: retired Housing: house Household Members: none *Travel in the last 8 weeks: None - Psychiatric History Pschychiatric History:: Reports:: Anxiety Family Hx:: No significant family history Review of Systems - Review of Systems Review of systems:: pertinent systems reviewed and negative unless documented below Meds Home Medications Medication Instructions Recorded Confirmed Type Albuterol Sulfate [Albuterol 2.5 mg IH DAILY 10/09/18 02/05/20 History Sulfate 2.5mg/0.5ml Neb] Amlodipine Besylate/Benazepril 10 mg PO DAILY 10/09/18 02/05/20 History [Amlodipine-Benazepril 10-20 mg] Lansoprazole [Prevacid] 30 mg PO DAILY 10/09/18 02/05/20 History Montelukast Sodium [Montelukast 10 mg PO DAILY 10/09/18 02/05/20 History 10mg Tab] Oxazepam 10 mg PO TID 10/09/18 02/05/20 History estradioL [Estradiol] 0.5 mg PO BOLUS 09/03/19 02/05/20 History Pregabalin [Lyrica 75mg Cap] 75 mg PO DAILY 01/15/20 02/05/20 History Tramadol HCl [Tramadol 50mg 50 mg PO TID 01/15/20 02/05/20 History Tab] nitrofurantoin macrocrystaL 50 mg PO DAILY 01/15/20 02/05/20 History [Nitrofurantoin] Sulfamethoxazole/Trimethoprim 1 each PO BID 02/03/20 02/05/20 History [Bactrim DS tablet] Allergies Allergy/AdvReac Type Severity Reaction Status Date / Time No Known Allergies Allergy Verified 02/05/20 09:00 Objective Vital signs: Temp Pulse Resp BP Pulse Ox 98.3 F 77 18 119/76 98 02/05/20 09:02 02/05/20 09:02 02/05/20 09:02 02/05/20 09:02 02/05/20 09:02 no acute distress - *Routine Respiratory Exam Comments: Normal breath sounds - *Routine Cardiovascular Exam Present: RRR - *Routine Abdominal Exam Present: soft
--- NOTE | 2020-02-05 10:00 | P.PN_ITS ---
[facility] Anesthesia Checklist - Patient Identification Patient Identification: Arm Band, Verbal (Name & ) - Structural Data Admitted From: Home Planned Operative Procedure/s: Placement of permanent neurostimulator Consent for Planned Operative Procedure(s) Verified: Yes Verified Documents: Surgical Consent, History and Physical - NPO Status Verified Time NPO: 22:00 - Chart Verification Results Verified: CBC, BMP - Additional verifications Anesthesia Reactions: No Hx Blood Transfusions: No Blood Transfusion Reaction: No - Airway Assessment C-Spine Mobility Assessed: Yes (MP 2, TMD 3) TMJ Mobility Assessed: Yes Dentition: Good Dentition ([place]) - Neurological Assessment Level of Consciousness: Awake, Alert, Appropriate, Follows Commands Hx Seizures: No Numbness or tingling in extremities: Yes - Anesthesia Plan Anesthesia Risk discussed: Yes Anesthesia Plan: Verified ASA Class: III Anesthesia Type: MAC [facility] History I have reviewed the patient's past medical history: Yes Medical History: Reports:: Anxiety, Asthma, Chronic Obstructive Pulmonary Disease (COPD), Gastroesophageal Reflux Disease(GERD), Hypertension, Lung Disease Denies:: Cancer, Diabetes Mellitus Type 1, Diabetes Mellitus Type 2, Internal Pacemaker, MRSA, Seizures *Have you ever received a pneumonia vaccine?: Yes *Have you received a flu vaccine this season?: No Other Medical History: Denies: Blood Transfusion Reaction Comment:: chronic pain Anesthesia experience/problems:: no prior complications Laterality Cases: Left: Breast Biopsy, Other, Right: Arthroscopy Shoulder Other Surgeries: Yes: Colonoscopy, Hysterectomy-Partial, Other (ACDF). No: Pacemaker Amputation: No Fractures: Yes - *Social History Last grade of school completed: High school graduate Smoking Status: Current every day smoker Tobacco Type: cigarettes # Packs/Day (cigarettes): 1 Alcohol Intake: current Alcohol Intake Frequency:: a few times a month Substance Use Type: denies use *Occupational Status:: retired Housing: house Household Members: none *Travel in the last 8 weeks: None - Psychiatric History Pschychiatric History:: Reports:: Anxiety Family Hx:: No significant family history
--- NOTE | 2020-02-05 11:52 | P.OP_ITS ---
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 Once adequate IV sedation was obtained via anesthesia and local anesthesia utilizing 1% Xylocaine with epinephrine a paraspinal incision was made by Dr. Gross there which 2 epidural leads were placed in the epidural space to the area desired by Dr. Gross. These were then fixed the paraspinal fascia with fixation devices and 2-0 Prolene sutures. A right flank incision was then made in which made a pocket for placement of the generator. Both wounds irrigated with antibiotic solution. Leads were passed to the paraspinal incision of the pocket incision utilize a tunneling device. The leads were fixed the generator and placed in the pocket. System noted to be working properly. Subcutaneous tissues closed with 2-0 Vicryl and skin closed with 4-0 nylon sutures. Wound VAC dressing and a binder applied to the wound.. The patient tolerated procedure well and was taken to the recovery room in stable condition. Upon recovery she will be discharged home with follow-up 1 week for removal of the wound VAC dressings and in 2 weeks for removal of the sutures. Antibiotics x1 week per protocol. The patient again tolerated the procedure well Condition: stable Disposition: PACU Complications:: None
--- NOTE | 2020-02-05 12:06 | P.OP_ITS ---
Date of procedure: 02/05/20 Pre-op Diagnosis:: Degenerative disc disease of the cervical spine with cervical radiculopathy symptoms and postlaminectomy syndrome of the cervical spine Post-op Diagnosis:: Same Procedure performed:: Spinal cord stimulator lead placement epidural x2 with tunneling for permanent spinal cord stimulator Surgeon:: Ajay Reyes MD TAX ASSOCIATE:: Jayme Tavares Anesthesia: MAC Estimated blood loss (mL): 5 Clinical Note:: Patient is a pleasant 59-year-old white female who we have been treating for her neck pain with cervical radicular symptoms and postlaminectomy syndrome of the cervical spine. She has increasing pain in her neck radiating to her shoulders. She is failed all previous conservative therapy including injections, oral medications, physical therapy and previous surgery. She is not a candidate for any further surgery. She is had a successful psychological evaluation. She is also had a successful spinal cord stimulator trial. We will plan on permanent placement of spinal cord stimulator today with a ffk environment system. Operative findings:: None Operative note:: Informed consent was obtained and the risk and benefits of the procedure were explained to the patient. Patient was taken to the operating room placed prone on the procedure table. She was prepped and draped in sterile fashion. C-arm fluoroscopy was used to view the lumbar spine. The skin and subcutaneous tissues adjacent to the L2-L3 and L3-L4 were anesthetized using lidocaine. I made an incision and dissected down to the lumbar paraspinous fascia. A 17- gauge epidural needle was inserted and advanced into the L2-L3 interspace. After confirmation of needle placement in the epidural space stimulating lead was inserted and advanced very easily to the C3-C4-C5 vertebral bodies. Lead placement was checked in AP and lateral views. This was done with the assistance of a percutaneous lead introducer kit. A second needle was then inserted and advanced into the L3-L4 interspace. Again after confirmation of needle placement in the epidural space a stimulating lead was inserted and again advanced very easily to the C3-C4-C5 vertebral bodies. Again lead placement was checked in AP and lateral views. Again placement of this lead was done with the assistance of a percutaneous lead introducer kit. The stylette and the needles were removed. The leads were secured to the fascia with anchoring devices and 2-[address] Prasad. The generator pocket was created by Dr. Prasad. I tunneled leads from the back to the generator pocket and attached the leads to the generator. Impedances were checked and found to be okay. Both incisions were irrigated by bacitracin solution. Both incisions were then closed with 2-0 Vicryl followed by 4-0 nylon. An abdominal binder was placed after placement of wound vacs. Patient was taken recovery in stable condition. Patient was programmed by the ffk environment airline security representative. Patient was discharged home neurologically intact with good relief of pain symptoms. Plan and disposition: We will follow-up with this patient in 1 week for reprogramming and wound check. We will follow-up in 2 weeks for suture removal. If the patient has any problems or questions she can call us back in the pain clinic. Condition: stable Disposition: PACU Complications:: None
== END 2020-02-05 13:05 | disposition home or self-care (01) ==
LOC: OR 08:43
PROVIDERS: PCP Family Medicine; Visit Provider Anesthesiology
PROC: (CPT 63650; principal; 2020-02-05 10:15)
DX: M51.16 Intervertebral disc disorders with radiculopathy, lumbar region (principal); Z87.39 Personal history of other diseases of the musculoskeletal system and connective tissue; J44.9 Chronic obstructive pulmonary disease, unspecified; F41.9 Anxiety disorder, unspecified; K21.9 Gastro-esophageal reflux disease without esophagitis; I10 Essential (primary) hypertension; Z72.0 Tobacco use; Z79.899 Other long term (current) drug therapy
CPT/HCPCS: 63650 ×2; 63685; 96374; C1778; C1820; J2704; J3370

== ENCOUNTER → 2020-02-13 11:31 | Outpatient (POV) | payer MEDICARE, SELFPAY ==
[2020-02-13 12:31] VITALS: BP 135/88; PULSE 79; RESP 18; O2SAT 99; BMI 21.2
--- NOTE | 2020-02-13 12:58 | HMH.PAINSOAP ---
[facility] Pain Management SOAP Note Subjective:: Patient is a 59-year-old white female who presents today for follow-up after spinal cord stimulator. She has been treated for neck pain with cervical radiculopathy symptoms and postlaminectomy syndrome cervical spine. Patient says she is doing well overall. She rates her pain a 3 out of 10. Her incision is well approximated, no redness, no drainage, no edema is noted to the site. There is are intact. She does not need any type of reprogramming today. She says she is much more functional since having the stimulator placed. Review of Systems General: No recent weight changes, no fever, no sleep disturbances Respiratory: No cough, no shortness of air, no recurring pulmonary infections Cardiovascular/peripheral vascular: No chest pain, no palpitations, no edema, no shortness of breath Gastrointestinal: No new onset incontinence, normal bowel movements reported Genitourinary: No new onset incontinence Musculoskeletal: Neck pain Psychiatric: Normal mood/affect Neurological: [Denies weakness in extremities], [denies balance issues] Objective:: Physical exam General: Alert and oriented x3, no acute distress, pleasant and cooperative, [on room air] Lungs: Respirations even and unlabored, symmetrical chest expansion Eyes: PERRL Musculoskeletal: Flexion and extension of cervical spine somewhat guarded secondary to pain, deep tendon reflexes normal, strength in upper and lower extremities [5/5], normal gait noted Neurological: Speech clear, leather scraper equal, no gross sensory deficit Assessment:: Degenerative disc disease cervical spine with cervical radiculopathy symptoms, postlaminectomy syndrome cervical spine Plan:: Patient is doing well overall. We will plan to follow-up with her in 2 weeks to remove her sutures. She has been instructed to contact clinic if she has any concerns before her next appointment. The patient and I specifically discussed risk factors for COVID19. These risks include, but are not limited to age greater than 60, heart or lung disease, diabetes, immunosuppression, and travel. We also discussed NSAIDs may worsen COVID19 infection or symptoms. Patient should not use NSAIDs to treat COVID19 signs or symptoms. Patient was also informed that any type of corticosteroid of any form (oral or injection) will decrease the patient's immune system response and may increase the likelihood of COVID19 infection [address] symptoms[address] Reyes has reviewed this note and agrees with this plan of care. This note was dictated using voice recognition software and make contain errors or omissions. [facility] History I have reviewed the patient's past medical history: Yes Medical History: Reports:: Anxiety, Asthma, Chronic Obstructive Pulmonary Disease (COPD), Gastroesophageal Reflux Disease(GERD), Hypertension, Lung Disease Denies:: Cancer, Diabetes Mellitus Type 1, Diabetes Mellitus Type 2, Internal Pacemaker, MRSA, Seizures *Have you ever received a pneumonia vaccine?: Yes *Have you received a flu vaccine this season?: Yes Other Medical History: Denies: Blood Transfusion Reaction Laterality Cases: Left: Breast Biopsy, Other, Right: Arthroscopy Shoulder Other Surgeries: Yes: Colonoscopy, Hysterectomy-Partial, Other (ACDF). No: Pacemaker Amputation: No Fractures: Yes - *Social History Smoking Status: Current every day smoker Tobacco Type: cigarettes # Packs/Day (cigarettes): 1 Alcohol Intake: current Alcohol Intake Frequency:: a few times a month Substance Use Type: denies use *Occupational Status:: other Housing: house Household Members: none *Travel in the last 8 weeks: None - Psychiatric History Pschychiatric History:: Reports:: Anxiety Family Hx:: No significant family history
== END ==
PROVIDERS: PCP Family Medicine; Visit Provider Clinical Nurse Specialist Family Health
DX: M50.10 Cervical disc disorder with radiculopathy, unspecified cervical region (principal); M96.1 Postlaminectomy syndrome, not elsewhere classified
CPT/HCPCS: 99212

== ENCOUNTER → 2020-02-27 11:23 | Outpatient (POV) | payer MEDICARE, SELFPAY ==
--- NOTE | 2020-02-27 12:12 | HMH.PAINSOAP ---
[facility] Pain Management SOAP Note Subjective:: Patient is a 59-year-old white female who presents today for follow-up. She is being treated for neck pain along with cervical radiculopathy symptoms and postlaminectomy syndrome cervical spine. Patient is here today to meet with a spinal cord stimulator member service representative. She says she is doing well overall with her pain. She rates her pain a out of 10 today. She says that 5 out of 10 is her baseline for her pain. She says she does not feel she needs reprogrammed today. Review of Systems General: No recent weight changes, no fever, no sleep disturbances Respiratory: No cough, no shortness of air, no recurring pulmonary infections Cardiovascular/peripheral vascular: No chest pain, no palpitations, no edema, no shortness of breath Gastrointestinal: No new onset incontinence, normal bowel movements reported Genitourinary: No new onset incontinence Musculoskeletal: Neck pain Psychiatric: Normal mood/affect Neurological: [Denies weakness in extremities], [denies balance issues] Objective:: Physical exam General: Alert and oriented x3, no acute distress, pleasant and cooperative, [on room air] Lungs: Respirations even and unlabored, symmetrical chest expansion Eyes: PERRL Musculoskeletal: Flexion and extension of cervical spine somewhat guarded secondary to pain, deep tendon reflexes normal, strength in upper and lower extremities [5/5], [abnormal gait noted] Neurological: Speech clear, mold filler plastic dolls equal, no gross sensory deficit Assessment:: Degenerative disc disease cervical spine with cervical radiculopathy symptoms, postlaminectomy syndrome cervical spine Plan:: Overall, the patient is doing well since having her stimulator implanted. She will follow-up with us in 3 months. I have advised her if she needs reprogramming or to follow-up with us before her next appointment to contact the clinic. The patient and I specifically discussed risk factors for COVID19. These risks include, but are not limited to age greater than 60, heart or lung disease, diabetes, immunosuppression, and travel. We also discussed NSAIDs may worsen COVID19 infection or symptoms. Patient should not use NSAIDs to treat COVID19 signs or symptoms. Patient was also informed that any type of corticosteroid of any form (oral or injection) will decrease the patient's immune system response and may increase the likelihood of COVID[address] Reyes has reviewed this note and agrees with this plan of care. This note was dictated using voice recognition software and make contain errors or omissions. [facility] History I have reviewed the patient's past medical history: Yes Medical History: Reports:: Anxiety, Asthma, Chronic Obstructive Pulmonary Disease (COPD), Gastroesophageal Reflux Disease(GERD), Hypertension, Lung Disease Denies:: Cancer, Diabetes Mellitus Type 1, Diabetes Mellitus Type 2, Internal Pacemaker, MRSA, Seizures *Have you ever received a pneumonia vaccine?: Yes *Have you received a flu vaccine this season?: Yes Other Medical History: Denies: Blood Transfusion Reaction Laterality Cases: Left: Breast Biopsy, Other, Right: Arthroscopy Shoulder Other Surgeries: Yes: Colonoscopy, Hysterectomy-Partial, Other (ACDF). No: Pacemaker Amputation: No Fractures: Yes - *Social History Smoking Status: Current every day smoker Tobacco Type: cigarettes # Packs/Day (cigarettes): 1 Alcohol Intake: current Alcohol Intake Frequency:: a few times a month Substance Use Type: denies use *Occupational Status:: other Housing: house Household Members: none *Travel in the last 8 weeks: None - Psychiatric History Pschychiatric History:: Reports:: Anxiety Family Hx:: No significant family history
[2020-02-27 12:37] VITALS: BP 132/88; PULSE 79; RESP 18; O2SAT 98; BMI 21.2
== END ==
PROVIDERS: PCP Family Medicine; Visit Provider Clinical Nurse Specialist Family Health
DX: M50.10 Cervical disc disorder with radiculopathy, unspecified cervical region (principal); M96.1 Postlaminectomy syndrome, not elsewhere classified
CPT/HCPCS: 99212

== ENCOUNTER → 2020-03-26 11:38 | Outpatient (POV) | payer MEDICARE, SELFPAY ==
[2020-03-26 11:50] VITALS: BP 118/74; PULSE 74; RESP 18; TEMP 36.7; O2SAT 99; BMI 24.7
--- NOTE | 2020-03-26 11:58 | HMH.PAINSOAP ---
[facility] Pain Management SOAP Note Subjective:: Patient is a 59-year-old white female who presents today for follow-up. She has been treated for neck pain along with cervical radiculopathy symptoms and postlaminectomy syndrome cervical spine. She does have a spinal cord stimulator [employer] in place. She was scheduled to meet with the stimulator customer development representative today for reprogramming. She rates her pain a 10 out of 10. She says that she is not getting any relief with the stimulator. She is also complaining of knots at the incision site . Patient says that she did not see these in not previously. She says that she is also tender over her incision site. Review of Systems General: No recent weight changes, no fever, no sleep disturbances Respiratory: No cough, no shortness of air, no recurring pulmonary infections Cardiovascular/peripheral vascular: No chest pain, no palpitations, no edema, no shortness of breath Gastrointestinal: No new onset incontinence, normal bowel movements reported Genitourinary: No new onset incontinence Musculoskeletal: mid low back pain Psychiatric: Normal mood/affect Neurological: [Denies weakness in extremities], [denies balance issues] Objective:: Physical exam General: Alert and oriented x3, no acute distress, pleasant and cooperative, [on room air] Lungs: Respirations even and unlabored, symmetrical chest expansion Eyes: PERRL Musculoskeletal: Flexion and extension of lumbar spine somewhat guarded secondary to pain, deep tendon reflexes normal, strength in upper and lower extremities [5/5], [abnormal gait noted] Neurological: Speech clear, animal care supervisor equal, no gross sensory deficit Assessment:: Degenerative disc disease cervical spine with cervical radiculopathy symptoms, postlaminectomy syndrome cervical spine Plan:: We will send the patient for an x-ray of her lumbar spine. Patient I did discuss that the knots that she is referring to is likely the anchors for the stimulator, however, we will send her for an x-ray just to be certain that there is no changes in the device and the leads. She will return to the clinic at [facility] to meet with a spinal cord stimulator customer development representative. We will also refill the patient's tramadol 50 mg 1 tablet p.o. 3 times daily and pregabalin 75 mg 1 tablet p.o. daily. We will give HER-2 months worth of medication she can hot die picker the third month in the interim. patient has been instructed to contact clinic has any concerns for next appointment. The patient and I specifically discussed risk factors for COVID19. These risks include, but are not limited to age greater than 60, heart or lung disease, diabetes, immunosuppression, and travel. We also discussed NSAIDs may worsen COVID19 infection or symptoms. Patient should not use NSAIDs to treat COVID19 signs or symptoms. Patient was also informed that any type of corticosteroid of any form (oral or injection) will decrease the patient's immune system response and may increase the likelihood of COVID[address] Reyes has reviewed this note and agrees with this plan of care. This note was dictated using voice recognition software and make contain errors or omissions. [facility] History I have reviewed the patient's past medical history: Yes Medical History: Reports:: Anxiety, Asthma, Chronic Obstructive Pulmonary Disease (COPD), Gastroesophageal Reflux Disease(GERD), Hypertension, Lung Disease Denies:: Cancer, Diabetes Mellitus Type 1, Diabetes Mellitus Type 2, Internal Pacemaker, MRSA, Seizures *Have you ever received a pneumonia vaccine?: Yes *Have you received a flu vaccine this season?: Yes Other Medical History: Denies: Blood Transfusion Reaction Laterality Cases: Left: Breast Biopsy, Other, Right: Arthroscopy Shoulder Other Surgeries: Yes: Colonoscopy, Hysterectomy-Partial, Other (ACDF). No: Pacemaker Amputation: No Fractures: Yes - *Social History Smoking Status: Current every day smoker Tob
--- NOTE | 2020-03-26 15:45 | XR_ITS ---
PROCEDURE: XR LUMBAR SPINE 2-3V CLINICAL INDICATION: BACK PAIN COMPARISON: No exams were available for comparison FINDINGS: Minimal lumbar scoliosis convex right. Normal alignment. No fracture or dislocation. Slight decrease in the L4-5 disc space suggesting mild degenerative disc disease. 2 mm anterolisthesis L4 on L5. There is a 3 mm calcific density overlying the left lower abdominal regions just superior to the iliac crest and could be within low-lying kidney. Epidural stimulator device is present entering the thecal sac at the L1 region. The tip of the electrodes are not visualized above the T10 area. IMPRESSION: Mild degenerative disc disease L4-5 with possible left nephrolithiasis. Epidural stimulator device in place. Dictated by: Buck Frausto MD 03/26/2020 15:59 Buck Frausto MD in [place] 03/26/2020 15:59
== END ==
PROVIDERS: PCP Family Medicine; Visit Provider Clinical Nurse Specialist Family Health
DX: M50.10 Cervical disc disorder with radiculopathy, unspecified cervical region (principal); M96.1 Postlaminectomy syndrome, not elsewhere classified; M54.9 Dorsalgia, unspecified
CPT/HCPCS: 72100; 99212

== ENCOUNTER → 2020-05-28 11:44 | Outpatient (POV) | payer MEDICARE, SELFPAY ==
[2020-05-28 12:31] VITALS: BP 128/65; PULSE 74; RESP 18; O2SAT 98; BMI 21.2
--- NOTE | 2020-05-28 12:54 | HMH.PAINSOAP ---
[facility] Pain Management SOAP Note Subjective:: Patient is a 59-year-old white female who presents today for follow-up. She has been treated for chronic neck pain with cervical radiculopathy symptoms. She does have a [employer] spinal cord stimulator in place. Patient says that she does get relief with the stim later in her right shoulder, however, she does report she is continuing to have significant neck pain. She also reports to be having right SI joint pain. She rates her pain a 6 out of 10 today. She has undergone reprogramming on 2-3 occasions, however, she says she is continuing to have pain that is not being relieved with the stimulator. She says that Dr. Reed did express concerns with the hardware in her neck that she may not get adequate pain relief in her neck area. Patient does report, however, she got great relief during the trial to her neck and shoulder. Today, she says her pain is worse in her right low back area. It radiates into her right buttock right hip and right leg. Pain is worse with standing and walking and does improve with sitting. She has had SI injections in the past and has gotten about 70 to 80% relief. She would like to proceed with right SI joint injection to see if this helps. She would also like to meet with the spinal cord stimulator telephone service representative for reprogramming again. Review of Systems General: No recent weight changes, no fever, no sleep disturbances Respiratory: No cough, no shortness of air, no recurring pulmonary infections Cardiovascular/peripheral vascular: No chest pain, no palpitations, no edema, no shortness of breath Gastrointestinal: No new onset incontinence, normal bowel movements reported Genitourinary: No new onset incontinence Musculoskeletal: Neck pain, shoulder pain, right low back pain, right buttock pain, right hip pain, right leg pain Psychiatric: Normal mood/affect Neurological: [Denies weakness in extremities], [denies balance issues] Objective:: Physical exam General: Alert and oriented x3, no acute distress, pleasant and cooperative, [on room air] Lungs: Respirations even and unlabored, symmetrical chest expansion Eyes: PERRL Musculoskeletal: Flexion and extension of lumbar and cervical spine somewhat guarded secondary to pain, deep tendon reflexes normal, strength in upper and lower extremities [5/5], [abnormal gait noted], positive Daniela's test, positive distraction test, positive test Neurological: Speech clear, payroll professional equal, no gross sensory deficit Assessment:: Degenerative disc disease cervical spine with cervical radiculopathy symptoms, postlaminectomy syndrome cervical spine, right sacroiliitis Plan:: The patient does have tenderness noted over her right SI joint today. She has positive Daniela's, distraction, and compression test to her right SI joint. She is also having worsening neck pain. We will schedule her for right SI joint injection and reprogramming of her spinal cord stimulator. She is getting significant relief to her right shoulder, however, she is continuing to have some neck pain. We will schedule her for the injection and see her back afterwards to reassess her symptoms. She has been instructed to contact the clinic if she has an concerns for next appointment. The patient and I specifically discussed risk factors for COVID19. These risks include, but are not limited to age greater than 60, heart or lung disease, diabetes, immunosuppression, and travel. We also discussed NSAIDs may worsen COVID19 infection or symptoms. Patient should not use NSAIDs to treat COVID19 signs or symptoms. Patient was also informed that any type of corticosteroid of any form (oral or injection) will decrease the patient's immune system response and may increase the likelihood of COVID[address] Reyes has reviewed this note and agrees with this plan of care. This note was dictated using voice recognition software and make contain e
== END ==
PROVIDERS: PCP Family Medicine; Visit Provider Clinical Nurse Specialist Family Health
DX: M50.10 Cervical disc disorder with radiculopathy, unspecified cervical region (principal); M96.1 Postlaminectomy syndrome, not elsewhere classified; M46.1 Sacroiliitis, not elsewhere classified
CPT/HCPCS: 99212

== ENCOUNTER 2020-06-05 10:07 | Day surgery (SDC) | payer MEDICARE, SELFPAY ==
[2020-06-05 10:50] VITALS: BP 140/84; PULSE 87; RESP 18; TEMP 36.2; O2SAT 97; BMI 22.1
[2020-06-05 11:19] VITALS: BP 133/74; PULSE 85; RESP 18; O2SAT 98
[2020-06-05 11:20] VITALS: BP 138/85; PULSE 74; RESP 18; O2SAT 98
--- NOTE | 2020-06-05 11:24 | HMH.PMPROC ---
- Procedure Date: 06/05/20 Time: 11:25 Anesthesiologist:: Ajay Reyes MD Complications:: None Pre-procedure Diagnosis:: Sacroiliitis Post-procedure Diagnosis:: Same Indications for Procedure:: Patient is a pleasant 59-year-old white female who we are treating for neck pain with cervical radicular symptoms. She does have a [employer] stimulator in place. The stimulator is helping with her shoulder pain however is not helping with her neck pain. She does need reprogramming. She also has some right hip pain. She is tender over the right SI joint. She is positive Daniela's test on right side. She is positive Rimma test on the right side. She is positive SI joint compression test on the right side. We will do a right SI joint injection today under fluoroscopy to help her with her right-sided hip pain symptoms. Procedure Details:: Right SI joint injection under fluoroscopy Informed consent was obtained and the risks and benefits of the procedure was going to the patient. Patient was taken to the procedure room. Patient was placed prone on the procedure table. The right hip was prepped using ChloraPrep. The skin and subcutaneous tissues were anesthetized using lidocaine. I placed a 22-gauge spinal needle into the inferior aspect of the right SI joint. Needle placement was confirmed with dye. After this we injected 5 mL bupivacaine 0.25% and Depo-Medrol 40 mg into the right SI joint. The patient tolerated the procedure well with no complication. Plan and Disposition:: We will follow-up with her in 2 weeks. Will reevaluate her symptoms at that time.
[2020-06-05 11:30] VITALS: BP 151/87; PULSE 83; RESP 18; O2SAT 97
== END 2020-06-05 11:30 | disposition home or self-care (01) ==
LOC: SC.PAINP 10:09
PROVIDERS: PCP Family Medicine; Visit Provider Anesthesiology
DX: M46.1 Sacroiliitis, not elsewhere classified (principal); I10 Essential (primary) hypertension; K21.9 Gastro-esophageal reflux disease without esophagitis; F41.9 Anxiety disorder, unspecified; Z72.0 Tobacco use; Z79.890 Hormone replacement therapy; Z79.51 Long term (current) use of inhaled steroids; Z79.899 Other long term (current) drug therapy
CPT/HCPCS: 27096; G0260; J1040; Q9966

== ENCOUNTER → 2020-07-02 11:11 | Outpatient (POV) | payer MEDICARE, SELFPAY ==
[2020-07-02 11:19] VITALS: BP 118/65; PULSE 65; RESP 18; TEMP 36.8; O2SAT 98; BMI 21.9
--- NOTE | 2020-07-02 11:34 | P.CONS_ITS ---
[facility] Pain Management SOAP Note Subjective:: Patient is a pleasant 59-year-old white female who presents today for follow-up after right SI joint injection. Patient got over a week relief from her SI joint injection. Patient is a candidate for corner lock procedure we will move forward with getting this approved. Patient also has a [employer] stimulator she is not getting good coverage at this time she has not been reprogrammed recently. I will reach out to the telephone service representative to have her stimulator reprogrammed. She rates her pain today a 10 out of 10 ROS General: no recent weight change, no fever, no sleep disturbances Respiratory: no cough, no shortness of air, no recurring pulmonary infections Cardiovascular/Peripheral Vascular: No chest pain, No palpitations, no edema, no shortness of breath. Gastrointestinal: no new onset incontinence, normal bowel movements reported Genitourinary: no new onset incontinence Musculoskeletal: SI joint pain, neck pain Psychiatric: normal mood/ affect Neurological: [denies new onset weakness in extremities], [denies new onset balance issues] Objective:: Physical Exam General: Alert and oriented x3, no acute distress, pleasant and cooperative, [on room air] Lungs: Resps E/U, Symmetrical chest expansion, Eyes: PERRL Musculoskeletal: Flexion and extension of lumbar spine somewhat guarded secondary to pain, deep tendon reflexes normal, strength in upper and lower extremities [5/5], [abnormal gait noted] positive Rimma test SI joint co mpression test Daniela's test and distraction test on the right side. Neurological: speech clear, national coverage specialist equal, no gross sensory deficits Assessment:: Sacroiliitis Plan:: We will set the patient up for a right SI joint stabilization. We will have the telephone service representative reach out for reprogramming. I will follow-up with the patient after stabilization reassess her symptoms at that time she has been instructed to call our office if she has any issues prior to next appointment. Dr. Reyes has reviewed this note and agrees with this plan of care. This note was dictated using voice recognition software and may contain errors or omissions [facility] History I have reviewed the patient's past medical history: Yes Medical History: Reports:: Anxiety, Asthma, Chronic Obstructive Pulmonary Disease (COPD), Gastroesophageal Reflux Disease(GERD), Hypertension, Lung Disease Denies:: Cancer, Diabetes Mellitus Type 1, Diabetes Mellitus Type 2, Internal Pacemaker, MRSA, Seizures *Have you ever received a pneumonia vaccine?: Yes *Have you received a flu vaccine this season?: Yes Other Medical History: Denies: Blood Transfusion Reaction Laterality Cases: Left: Breast Biopsy, Other, Right: Arthroscopy Shoulder Other Surgeries: Yes: Colonoscopy, Hysterectomy-Partial, Other (ACDF). No: Pacemaker Amputation: No Fractures: Yes - *Social History Smoking Status: Current every day smoker Tobacco Type: cigarettes # Packs/Day (cigarettes): 1 Alcohol Intake: never Alcohol Intake Frequency:: a few times a month Substance Use Type: denies use *Occupational Status:: other Housing: house Household Members: none *Travel in the last 8 weeks: None - Psychiatric History Pschychiatric History:: Reports:: Anxiety Family Hx:: No significant family history
== END ==
PROVIDERS: PCP Family Medicine; Visit Provider Clinical Nurse Specialist Family Health
DX: M46.1 Sacroiliitis, not elsewhere classified (principal)
CPT/HCPCS: 99212

== ENCOUNTER → 2020-08-21 15:51 | Outpatient (CLI) | payer MEDICARE, SELFPAY ==
--- NOTE | 2020-08-21 15:51 | MM_ITS ---
PROCEDURE: MM DIG SCREENING MAMM BI W/CAD Digital Breast Tomosynthesis Included CLINICAL INDICATION: Routine Screening Mammogram There is no personal or family history of breast cancer. There has been a previous biopsy left breast for benign disease. The patient currently is on estrogen. COMPARISON: MG DIGMAMMS MAMMOGRAM SCREEN-ACCOUNTANT N/C from 09/29/2005 MG DMSB DIG MAMM-SCREEN DEL W/CAD from 03/07/2017 MG SCBI MM Dig screening mamm BI w/CAD from 09/17/2018 TECHNIQUE: Standard CC and MLO images and 3D Tomosynthesis was obtained. R2 CAD reviewed. FINDINGS: Mild to moderate scattered fibroglandular densities are seen in both breasts. There are 2 biopsy clips left breast. There is no suspicious lesion in either breast and no suspicious microcalcifications. IMPRESSION: Mild to moderate breast density with no suspicious lesions seen BI-RAD Category: 2 Benign Finding(s) FOLLOW-UP: 1YR 1 Year Follow-up (A letter has been sent to the patient regarding results of the study.) Dictated by: Dr. Caio Holly MD 08/25/2020 08:09 Dr. Caio Holly MD in [place] 08/25/2020 08:09
== END ==
PROVIDERS: PCP Family Medicine; Visit Provider Obstetrics & Gynecology
DX: Z12.31 Encounter for screening mammogram for malignant neoplasm of breast (principal)
CPT/HCPCS: 77063; 77067

== ENCOUNTER → 2022-08-04 11:32 | Outpatient (POV) | payer MEDICARE, SELFPAY ==
[2022-08-04 11:50] VITALS: BP 137/71; PULSE 96; RESP 20; BMI 21.6
--- NOTE | 2022-08-04 12:16 | EXP.PAIN.SOA ---
[facility] Pain Management SOAP Note Subjective:: Patient is a pleasant 61-year-old female who presents today for follow-up. We are currently treating the patient for sacroiliitis, degenerative disc disease of cervical spine with cervical radiculopathy symptoms, status post cervical fusion, low back pain, right hip pain. Patient rates her pain today a 8 out of 10. Patient denies any new trauma or injury. Patient denies any change location or type of pain she experiences. Patient states she has had this pain for years and that she has a [employer] spinal cord stimulator in place. Patient states that she has had this device for years however it has not done well. Patient states she continues to have some pain around her anchor site and states that she is unsure why that was ever placed. Patient states that she has 6 programs and none of them help manage her pain symptoms. Patient states that her trial in the past did better than the actual implant. Patient does state it has been a couple of years since she is reached out for reprogram. Patient does describe her pain as a dull aching sensation with some sharp pains depending on activity and range of motion. Patient does state that she uses alternating ibuprofen and Advil along with a heating pad for some temporary relief. Patient does state this pain is worse with prolonged sitting or laying so frequently she has to get up and stand to provide improvement. Patient does take oxazepam 10 mg daily from her primary care doctor. Patient denies any side effects from this medication. Patient denies any cardiac or kidney issues. Her Richard is [phone]. Its been reviewed and appropriate. Review of Systems: General: No recent weight changes, no fever, no sleep disturbances Respiratory: No cough, no shortness of air, no recurring pulmonary infections Cardiovascular/peripheral vascular: No chest pain, no palpitations, no edema, no shortness of breath Gastrointestinal: No new onset incontinence, normal bowel movements reported Genitourinary: No new onset incontinence Musculoskeletal: Neck pain, low back pain, right hip pain, right leg pain Psychiatric: [Normal mood/affect] Neurological: [Denies weakness in extremities], [denies balance issues] Objective:: Physical Exam: General: Alert and oriented x3, no acute distress, pleasant and cooperative Lungs: Respirations even and unlabored, symmetrical chest expansion Eyes: PERRL Musculoskeletal: Flexion and extension of cervical, lumbar [spine] somewhat guarded secondary to pain, [antalgic gait noted] Neurological: Speech clear, no gross sensory deficit ORT score updated with low risk of 0 Assessment:: Degenerative disc disease of cervical spine with cervical radiculopathy symptoms, status post cervical fusion, low back pain, right hip pain, sacroiliitis Plan:: Patient is experiencing significant pain in her neck and low back with radiating symptoms into her right leg. Patient did have limited range of motion of her cervical and lumbar spine during today's visit. I will order the patient a compounding cream and diclofenac 75 mg twice daily with a 14-day supply of this medication. I have counseled the patient to take this medication with food to minimize GI upset and to discontinue all other NSAIDs while taking this. I have reviewed with the patient the reason for the anchor from her spinal cord stimulator and patient is much more comfortable with why this was placed now. Patient will return to clinic in 2 weeks for reevaluation of symptoms, medication refill if indicated and follow-up. Patient has been instructed to contact the clinic with any concerns before the next appointment. Dr. Reyes has reviewed this note and agrees with this plan of care. This note was dictated using voice recognition software and make contain errors or omissions. [facility] Disclaimer: The information contained in this section may have been updated after the patient was seen, as this info
== END | disposition home or self-care (01) ==
PROVIDERS: PCP Family Medicine; Visit Provider Nurse Practitioner Family
DX: M50.10 Cervical disc disorder with radiculopathy, unspecified cervical region (principal); M46.1 Sacroiliitis, not elsewhere classified; M25.551 Pain in right hip
CPT/HCPCS: 99202; G0463

== ENCOUNTER → 2022-08-24 14:12 | Outpatient (POV) | payer MEDICARE, SELFPAY ==
[2022-08-24 14:16] VITALS: BMI 20.9
--- NOTE | 2022-08-24 15:05 | EXP.PAIN.SOA ---
[facility] Pain Management SOAP Note Subjective:: Patient is a pleasant 62-year-old female who presents today for follow-up and spinal cord stimulator reprogramming. We are currently treating the patient for sacroiliitis, degenerative disc disease of cervical spine with cervical radiculopathy symptoms, status post cervical fusion, low back pain, right hip pain. Today the patient rates her pain a 8 out of 10. Patient denies any new trauma or injury. Patient denies any change location or type of pain she experiences. Patient does have a [employer] spinal cord stimulator in place and is also getting her device reprogrammed at today's visit. Patient does states she continues to have some pain around her upper back/neck with radiating symptoms. Patient also states she has pain around her anchor site at times. Patient does describe this as a sore, achy sensation that is worse with increased activity. Patient does states she did get her compounding cream from our last visit and it does provide significant improvement although temporary. Patient is currently managed with oxazepam 10 mg daily from her primary care doctor. Patient denies any side effects from this medication. Patient states she is leaving for [place] tomorrow and will be gone for approximately 3 weeks. Her Richard is [phone]. Its been reviewed and appropriate. Review of Systems: General: No recent weight changes, no fever, no sleep disturbances Respiratory: No cough, no shortness of air, no recurring pulmonary infections Cardiovascular/peripheral vascular: No chest pain, no palpitations, no edema, no shortness of breath Gastrointestinal: No new onset incontinence, normal bowel movements reported Genitourinary: No new onset incontinence Musculoskeletal: Neck pain Psychiatric: [Normal mood/affect] Neurological: [Denies weakness in extremities], [denies balance issues] Objective:: Physical Exam: General: Alert and oriented x3, no acute distress, pleasant and cooperative Lungs: Respirations even and unlabored, symmetrical chest expansion Eyes: PERRL Musculoskeletal: Flexion and extension of cervical [spine] somewhat guarded secondary to pain, [antalgic gait noted] Neurological: Speech clear, no gross sensory deficit Assessment:: Degenerative disc disease of cervical spine with cervical radiculopathy symptoms, sacroiliitis, status post cervical fusion, low back pain, right hip pain Plan:: Patient continues to experience pain in her upper back/neck with limited range of motion. Patient was able to get reprogrammed by [employer] personal financial representative at today's visit. Patient was given 3 different programs including a high rate and burst. Patient did get good coverage with this programming and is hopeful that it will do well. Patient will return to clinic in 1 month for reevaluation of symptoms, and follow-up. Patient has been instructed to contact the clinic with any concerns before the next appointment. Dr. Reyes has reviewed this note and agrees with this plan of care. This note was dictated using voice recognition software and make contain errors or omissions. [facility] Disclaimer: The information contained in this section may have been updated after the patient was seen, as this information can be updated by other users. Medical History (Updated 08/04/22 @ 13:34 by Maddy Lopez RN) Anxiety COPD (chronic obstructive pulmonary disease) DDD (degenerative disc disease) Depression GERD (gastroesophageal reflux disease) HTN (hypertension) Normal colonoscopy Spinal cord neurostimulator device in situ Surgical History (Updated 08/04/22 @ 13:34 by Maddy Lopez RN) H/O arthroscopy of shoulder H/O: hysterectomy Hx of breast biopsy S/P cervical spinal fusion Family History (Updated 08/04/22 @ 13:34 by Maddy Lopez RN) Other No significant family history Social History (Updated 08/04/22 @ 13:34 by Maddy Lopez RN) Smoking Status: Current every day smoker t
== END ==
PROVIDERS: PCP Family Medicine; Visit Provider Nurse Practitioner Family
DX: M50.10 Cervical disc disorder with radiculopathy, unspecified cervical region (principal); M46.1 Sacroiliitis, not elsewhere classified; M25.551 Pain in right hip; Z98.1 Arthrodesis status
CPT/HCPCS: 99212; G0463

== ENCOUNTER 2023-08-17 12:50 | Outpatient (CLI) | payer MEDICARE, SELFPAY ==
--- NOTE | 2023-08-17 12:57 | MM_ITS ---
PROCEDURE INFORMATION: Exam: MG Bilateral Screening 3D Mammography Exam date and time: 08/17/2023 12:44 PM Age: 63 years old Clinical indication: Screening examination TECHNIQUE: Imaging protocol: Bilateral Screening tomosynthesis and 2D mammography including computer-aided detection (CAD) when performed. COMPARISON: 1. MG MM DIG SCREENING MAMM BI W/CAD 08/21/2020 3:52 PM 2. MG [facility]BI MM Dig screening mamm BI w/CAD 09/17/2018 10:15 AM FINDINGS: MAMMOGRAPHY: Breast composition: There are scattered areas of fibroglandular density. Mass: None. Architectural distortion: None. Calcifications: No suspicious calcifications. Asymmetric density: None. Skin thickening: None. Axillary adenopathy: None. IMPRESSION: No mammographic evidence of malignancy. Annual screening is recommended unless otherwise clinically indicated. ASSESSMENT: BI-RADS Category 1: Negative
== END 2023-08-17 23:59 ==
LOC: RAD 12:51
PROVIDERS: PCP Family Medicine; Visit Provider Family Medicine
DX: Z12.31 Encounter for screening mammogram for malignant neoplasm of breast (principal)
CPT/HCPCS: 77063; 77067

== ENCOUNTER 2025-02-10 14:53 | Outpatient (CLI) | payer MEDICARE, SELFPAY ==
--- OUTSIDE RECORDS SUMMARY | 2025-01-27 10:15 | XMS_ITS | Encounter Summary ---
[facility] [address] [place] [address] Care Team Providers Care Ribbon Cutter Name Role Phone Nitish Betancourt MD Primary Care Provider + Reason for Referral * MRI/CAT/PET Scan (Routine) - Authorized Specialty Diagnoses / Procedures Referred By Contac t Referred To Contact Radiology Diagnoses Personal history of nicotine dependence Encounter for screening for lung cancer Procedures CT Chest Low Dose Cancer Screening WO Nitish Betancourt MD [address] [place] [address] Phone: tel: fax: [facility] [address] [place] [address] Phone: tel: Referral ID Status Reason Start Date Expiration Date V isits Requested Visits Authorized [id number] Authorized 01/27/2025 04/28/2026 1 1 * Diagnostic Imaging (Routine) - Authorized Specialty Diagnoses / Procedures Referred By Contac t Referred To Contact Diagnoses Encounter for screening mammogram for malignant neoplasm of breast Procedures Mammo Screening Digital Tomosynthesis Bilateral With CAD Nitish Betancourt MD [address] [place] [id number] Phone: tel: fax: [facility] [address] [place] [address] Phone: tel: fax: Referral ID Status Reason Start Date Expiration Date V isits Requested Visits Authorized [id number] Authorized 01/27/2025 04/28/2026 1 1 Reason for Visit * Reason Comments Medicare Wellness-subsequent Encounter Details Date Type Department Care Team (Late st Contact Info) Description 01/27/2025 10:15 AM EDT Office Visit [facility] [address] [facility] [place] [address] Nitish Betancourt MD [address] [address] Medicare annual wellness visit, subsequent (Primary Dx); Essential hypertension; Mild depression; Gastroesophageal reflux disease without esophagitis; Non-seasonal allergic rhinitis due to pollen; Anxiety; Hypercholesterolemia; Chronic obstructive pulmonary disease, unspecified COPD type; Annual physical exam; Personal history of nicotine dependence; Cigarette smoker; Encounter for screening mammogram for malignant neoplasm of breast; Encounter for screening for lung cancer Social History Tobacco Use Types Packs/Day Years Used Date Smoking Tobacco: Some Days Cigarettes 0.5 41 Started: 02/22/1984 Smokeless Tobacco: Never Tobacco Cessation:Ready to Q uit: Not Asked; Counseling Given: Not Answered Alcohol Use Standard Drinks/Week Comments Yes 6 (1 standard drink = 0.6 oz pur e alcohol) PHQ-2 Answer Date Recorded Retired PHQ-9: Brief Depression Severity Measure Score 0 05/18/2023 PHQ-2 Answer Date Recorded Patient Health Questionnaire-2 Score 0 01/27/2025 Comments Unknown Sex and Gender Information Value Date Recorded Sex Assigned at Female 01/25/2025 12:00 PM EDT Legal Sex Female 3:57 PM EDT Gender Identity Not on file Sexual Orientation Straight 01/25/2025 12 :00 PM EDT documented as of this encounter Last Filed Vital Signs Vital Sign Reading Time Taken Comments Blood Pressure 126/68 01/27/2025 10:09 AM EDT Pulse 84 01/27/2025 10:09 AM EDT Temperature 36.5 C (97.7 F) 01/27/2025 10:09 AM EDT Respiratory Rate 16 01/27/2025 10:0 9 AM EDT Oxygen Saturation 97% 01/27/2025 10: 09 AM EDT Inhaled Oxygen Concentration - - Weight 54.3 kg (119 lb 12.8 oz) 025 10:09 AM EDT Height 160 cm (5' 3 ) 01/27/2025 10:09 AM EDT Body Mass Index 21.22 01/27/2025 10:09 AM EDT documented in this encounter Functional Status documented as of this encounter Progress Notes * Nitish Betancourt MD - 01/27/2025 10:15 AM EDTAssociated Problem(s): Essential hypertension {Hypertension is (optional):9312054507} Orders: amLODIPine-benazepril (LOTREL 5-20) 5-20 MG per capsule; Take 1 capsule by mouth Daily. * Nitish Betancourt MD - 01/27/2025 10:15 AM EDTAssociated Problem(s): Gastroesophageal reflux disease without esophagitis Orders: lansoprazole (PREVACID) 30 MG capsule; Take 1 capsule by mouth Daily. * Nitish Betancourt MD - 01/27/2025 10:15 AM EDTAssociated Problem(s): Non- seasonal allergic rhinitis due to pollen Orders: montelukast (SINGULAIR) 10 MG tablet; Take 1 tablet by mouth Every Night. * Nitish Betancourt MD - 01/27/2025 10:15 AM EDTAssociated Problem(s): Anxiety Orders: oxazepam (SERAX) 10 MG capsule; Take 1 capsule by mouth 2 (Two) Times a Day As Needed for Anxiety. * Nitish Betancourt MD - 01/27/2025 10:15 AM EDTAssociated Problem(s): Hypercholesterolemia {Hyperlipidemia A/P Block (Optional):0607726120} Orders: rosuvastatin (CRESTOR) 20 MG tablet; Take 1 tablet by mouth Daily. * Nitish Betancourt MD - 01/27/2025 10:15 AM EDTAssociated Problem(s): Chronic obstructive pulmonary disease {COPD A/P Block (Optional):79942} Orders: rosuvastatin (CRESTOR) 20 MG tablet; Take 1 tablet by mouth Daily. * Nitish Betancourt MD - 01/27/2025 10:15 AM EDTAssociated Problem(s): Cigarette smoker * Nitish Betancourt MD - 01/27/2025 10:15 AM EDT Images from the original note were not included. Subjective The ABCs of the Annual Wellness Visit Medicare Wellness Visit Silvia Berry is a 64 y.o. patient who presents for a Medicare Wellness Visit. The following portions of the patient's history were reviewed and updated as appropriate: allergies, current medications, past family history, past medical history, past social history, past surgical history, and problem list. Compared to one year ago, the patient's physical health is the same. Compared to one year ago, the patient's mental health is the same. Recent Hospitalizations: She was not admitted to the hospital during the last year. Current Medical Providers: Patient Care Team: Nitish Betancourt MD as PCP - General (Family Medicine) Outpatient Medications Prior to Visit Medication Sig Dispense Refill albuterol sulfate HFA 108 (90 Base) MCG/ACT inhaler INHALE 2 PUFFS BY MOUTH EVERY 4 HOURS NEEDEDFOR WHEEZING 18 g 2 amLODIPine-benazepril (LOTREL 5-20) 5-20 MG per capsule TAKE 1 CAPSULE BY MOUTH DAILY 90 capsule 0 escitalopram (LEXAPRO) 5 MG tablet TAKE 1 TABLET BY MOUTH DAILY 90 tablet 0 Oactgunnyas-Ypghyfwrs-Qmcadd (Trelegy Ellipta) 100-62.5-25 MCG/ACT inhaler Inhale 1 puff Daily. 1 each 11 lansoprazole (PREVACID) 30 MG capsule TAKE 1 CAPSULE BY MOUTH DAILY 90 capsule 0 montelukast (SINGULAIR) 10 MG tablet TAKE ONE TABLET BY MOUTH ONCE NIGHTLY 90 tablet 0 oxazepam (SERAX) 10 MG capsule TAKE 1 CAPSULE BY MOUTH 3 TIMES A DAY NEEDED FOR ANXIETY 90 capsule 5 rosuvastatin (CRESTOR) 20 MG tablet TAKE 1 TABLET BY MOUTH DAILY 90 tablet 0 No facility-administered medications prior to visit. No opioid medication identified on active medication list. I have reviewed chart for other potential high risk medication/s and harmful drug interactions in the elderly. Aspirin is not on active medication list. Aspirin use is not indicated based on review of current medical condition/s. Risk of harm outweighs potential benefits. . Patient Active Problem List Diagnosis Cigarette smoker Gastroesophageal reflux disease without esophagitis Anxiety Chronic obstructive pulmonary disease Essential hypertension Non-seasonal allergic rhinitis due to pollen Hypercholesterolemia Advance Care Planning Advance Directive is not on file. ACP discussion was held with the patient during this visit. Patient does not have an advance directive, information provided. Objective Vitals: 01/27/25 1009 BP: 126/68 Pulse: 84 Resp: 16 Temp: 97.7 ??F (36.5 ??C) SpO2: 97% Weight: 54.3 kg (119 lb 12.8 oz) Height: 160 cm (63 ) PainSc: 0-No pain Estimated body mass index is 21.22 kg/m?? as calculated from the following: Height as of this encounter: 160 cm (63 ). Weight as of this encounter: 54.3 kg (119 lb 12.8 oz). BMI is within normal parameters. No other follow-up for BMI required. Does the patient have evidence of cognitive impairment? No Health Risk Assessment Smoking Status: Social History Tobacco Use Smoking Status Some Days Current packs/day: 0.50 Average packs/day: 0.5 packs/day for 40.9 years (20.5 ttl pk-yrs) Types: Cigarettes Start date: 02/22/1984 Smokeless Tobacco Never Alcohol Consumption: Social History Substance and Sexual Activity Alcohol Use Yes Alcohol/week: 6.0 standard drinks of alcohol Types: 6 Cans of beer per week Fall Risk Screen STEADI Fall Risk Assessment was completed, and patient is at LOW risk for falls.Assessment completed on:01/27/2025 Depression Screening Little interest or pleasure in doing things? Not at all Feeling down, depressed, or hopeless? Not at all PHQ-2 Total Score 0 Health Habits and Functional and Cognitive Screenin01/25/2025 12:03 PM Functional & Cognitive Status Do you have difficulty preparing food and eating? No Do you have difficulty bathing yourself, getting dressed or grooming yourself? No Do you have difficulty using the toilet? No Do you have difficulty moving around from place to place? No Do you have trouble with steps or getting out of a bed or a chair? No Current Diet Well Balanced Diet Dental Exam Up to date Eye Exam Up to date Exercise (times per week) 3 times per week Current Exercises Include Walking Do you need help using the phone? No Are you deaf or do you have serious difficulty hearing? No Do you need help to go to places out of walking distance? No Do you need help shopping? No Do you need help preparing meals? No Do you need help with housework? No Do you need help with laundry? No Do you need help taking your medications? No Do you need help managing money? No Do you ever drive or ride in a car without wearing a seat belt? No Have you felt unusual fatigue (could be tiredness), stress, anger or loneliness in the last month? No Who do you live with? Alone If you need help, do you have trouble finding someone available to you? No Have you been bothered in the last four weeks by sexual problems? No Do you have difficulty concentrating, remembering or making decisions? No Age-appropriate Screening Schedule: Refer to the list below for future screening recommendations based on patient's age, sex and/or medical conditions. Orders for these recommended tests are listed in the plan section. The patient has been provided with a written plan. Health Maintenance List Health Maintenance Topic Date Due ZOSTER VACCINE (1 of 2) Never done HEPATITIS C SCREENING Never done TDAP/TD VACCINES (2 - Td or Tdap) 12/04/2023 LUNG CANCER SCREENING 02/01/2025 COVID-19 Vaccine ( season) 2025 (Originally 03/24/2024) INFLUENZA VACCINE 02/10/2025 (Originally 01/21/2025) LIPID PANEL 07/25/2025 MAMMOGRAM 08/17/2025 ANNUAL WELLNESS VISIT 01/27/2026 COLORECTAL CANCER SCREENING 10/04/2032 Pneumococcal Vaccine 50+ Completed [facility] Preventative Services Quick Reference Risk Factors Identified During Encounter Immunizations Discussed/Encouraged: Influenza, COVID19, and Capvaxive Tobacco Use/Dependance Risk Quit date is February 12. Currently smoking 5 cigs per day Dental Screening Recommended Vision Screening Recommended LDCT for Lung cancer screening Mammogram will be ordered The above risks/problems have been discussed with the patient. Pertinent information has been shared with the patient in the After Visit Summary. An After Visit Summary and PPPS were made available to the patient. Follow Up: Next Medicare Wellness visit to be scheduled in 1 year. Additional E&M Note during same encounter follows: Patient has additional, significant, and separately identifiable condition(s)/problem(s) that require work above and beyond the Medicare Wellness Visit Chief Complaint Medicare Wellness-subsequent Subjective HPI Silvia is also being seen today for an annual adult preventative physical exam. Sleep. Approximately 5 hours per night Review of Systems Respiratory: Positive for cough. Psychiatric/Behavioral: Positive for sleep disturbance. The patient is nervous/anxious. All other systems reviewed and are negative. Objective Vital Signs: BP 126/68 Pulse 84 Temp 97.7 ??F (36.5 ??C) Resp 16 Ht 160 cm (63 ) Wt 54.3 kg (119 lb 12.8 oz) SpO2 97% BMI 21.22 kg/m?? Physical Exam Constitutional: General: She is not in acute distress. Appearance: Normal appearance. She is not ill-appearing. HENT: Head: Normocephalic and atraumatic. Right Ear: Tympanic membrane and ear canal normal. Left Ear: Tympanic membrane and ear canal normal. Nose: Nose normal. Mouth/Throat: Mouth: Mucous membranes are moist. Pharynx: Oropharynx is clear. No posterior oropharyngeal erythema. Eyes: Extraocular Movements: Extraocular movements intact. Conjunctiva/sclera: Conjunctivae normal. Pupils: Pupils are equal, round, and reactive to light. Cardiovascular: Rate and Rhythm: Normal rate and regular rhythm. Pulses: Normal pulses. Heart sounds: Normal heart sounds. Pulmonary: Effort: Pulmonary effort is normal. No respiratory distress. Comments: Distant but clear Abdominal: General: Abdomen is flat. Bowel sounds are normal. Palpations: Abdomen is soft. Tenderness: There is no abdominal tenderness. Musculoskeletal: General: Normal range of motion. Cervical back: Normal range of motion and neck supple. Lymphadenopathy: Cervical: No cervical adenopathy. Skin: General: Skin is warm and dry. Capillary Refill: Capillary refill takes less than 2 seconds. Neurological: General: No focal deficit present. Mental Status: She is alert and oriented to person, place, and time. Mental status is at baseline. Cranial Nerves: No cranial nerve deficit. Sensory: No sensory deficit. Motor: No weakness. Psychiatric: Mood and Affect: Mood normal. Behavior: Behavior normal. Thought Content: Thought content normal. Judgment: Judgment normal. The following data was reviewed by: Nitish Betancourt MD on 01/27/2025: CMP 07/25/2024 11:21 CMP Glucose 107 BUN 10 Creatinine 0.68 EGFR 99.2 Sodium 138 Potassium 3.5 Chloride 102 Calcium 9.3 BUN/Creatinine Ratio 14.7 CBC 07/25/2024 11:21 CBC WBC 4.13 RBC 4.49 Hemoglobin 14.3 Hematocrit 41.3 MCV 92.0 MCH 31.8 MCHC 34.6 RDW 12.3 Platelets 216 Lipid Panel 07/25/2024 11:21 Lipid Panel Total Cholesterol 198 Triglycerides 128 HDL Cholesterol 89 VLDL Cholesterol 22 LDL Cholesterol 87 Assessment and Plan Essential hypertension Orders: amLODIPine-benazepril (LOTREL 5-20) 5-20 MG per capsule; Take 1 capsule by mouth Daily. Mild depression Orders: escitalopram (LEXAPRO) 5 MG tablet; Take 1 tablet by mouth Daily. Gastroesophageal reflux disease without esophagitis Orders: lansoprazole (PREVACID) 30 MG capsule; Take 1 capsule by mouth Daily. Non-seasonal allergic rhinitis due to pollen Orders: montelukast (SINGULAIR) 10 MG tablet; Take 1 tablet by mouth Every Night. Anxiety Orders: oxazepam (SERAX) 10 MG capsule; Take 1 capsule by mouth 2 (Two) Times a Day As Needed for Anxiety. Hypercholesterolemia Orders: rosuvastatin (CRESTOR) 20 MG tablet; Take 1 tablet by mouth Daily. Chronic obstructive pulmonary disease, unspecified COPD type Orders: rosuvastatin (CRESTOR) 20 MG tablet; Take 1 tablet by mouth Daily. Annual physical exam Medicare annual wellness visit, subsequent Personal history of nicotine dependence Orders: CT Chest Low Dose Cancer Screening WO; Future Cigarette smoker Encounter for screening mammogram for malignant neoplasm of breast Orders: Mammo Screening Digital Tomosynthesis Bilateral With CAD; Future Encounter for screening for lung cancer Orders: CT Chest Low Dose Cancer Screening WO; Future Follow Up Return in about 1 year (around 01/27/2026) for Medicare Wellness. Patient was given instructions and counseling regarding her condition or for health maintenance advice. Please see specific information pulled into the AVS if appropriate. documented in this encounter Plan of Treatment Upcoming Encounters Date Type Department Care Team (Late st Contact Info) Description 02/24/2025 2:15 PM EDT [facility] [address] [place] [address] 07/31/2025 9:00 AM EST Office Visit [facility] [address] [place] [address] Nitish Betancourt MD [address] [place] [address] 01/29/2026 9:15 AM EDT Office Visit [facility] [address] [place] [address] Nitish Betancourt MD [address] [place] [address] Scheduled Orders Name Type Priority Associated Diagnoses Orde r Schedule Mammo Screening Digital Tomosynthesis Bilateral With CAD Imaging Routine Encounter for screening mammogram for malignant neoplasm of breast Expected: 02/17/2025, Expires: 01/27/2026 CT Chest Low Dose Cancer Screening WO Imaging Routine Personal history of nicotine dependence Encounter for screening for lung cancer Expected: 02/17/2025, Expires: 01/27/2026 documented as of this encounter Visit Diagnoses Diagnosis Medicare annual wellness visit, subsequent- Primary Essential hypertension Unspecified essential hypertension Mild depression Depressive disorder, not elsewhere classified Gastroesophageal reflux disease without esophagitis Esophageal reflux Non-seasonal allergic rhinitis due to pollen Anxiety Anxiety state, unspecified Hypercholesterolemia Pure hypercholesterolemia Chronic obstructive pulmonary disease, unspecified COPD type Annual physical exam Routine general medical examination at a health care facility Personal history of nicotine dependence Cigarette smoker Tobacco use disorder Encounter for screening mammogram for malignant neoplasm of breast Encounter for screening for lung cancer documented in this encounter Care Teams Ribbon Cutter Relationship Specialty Start Date End Date Nitish Betancourt MD [address] [place] [address] PCP - General Family Medicine 01/05/22 documented as of this encounter
--- NOTE | 2025-02-10 14:55 | MM_ITS ---
PROCEDURE INFORMATION: Exam: MG Bilateral Screening 3D Mammography Exam date and time: 02/10/2025 3:06 PM Age: 64 years old Clinical indication: Screening examination TECHNIQUE: Imaging protocol: Bilateral Screening tomosynthesis and 2D mammography including computer-aided detection (CAD) when performed. COMPARISON: 1. MG MM DIG SCREENING MAMM BI W/CAD 08/17/2023 12:44 PM 2. MG MM DIG SCREENING MAMM BI W/CAD 08/21/2020 3:52 PM FINDINGS: MAMMOGRAPHY: Breast composition: There are scattered areas of fibroglandular density. Mass: No suspicious masses. Architectural distortion: None. Calcifications: No suspicious calcifications. Asymmetric density: None. Skin thickening: None. Axillary adenopathy: None. IMPRESSION: No mammographic evidence of malignancy. Annual screening is recommended unless otherwise clinically indicated. ASSESSMENT: BI-RADS Category 1: Negative.
--- OUTSIDE RECORDS SUMMARY | 2025-02-10 14:55 | XMS_ITS | Encounter Summary ---
[facility] Address [address] [place] [address] Care Team Providers Care Auto Damage Appraiser Name Role Phone Nitish Betancourt MD Primary Care Provider + Reason for Visit * Reason Onset Date Comments Prior Authorization 01/01/2025 Maryjane Hair pta Encounter Details Date Type Department Care Team (Late st Contact Info) Description 01/01/2025 Telephone [facility] [address] [place] [address] Nitish Betancourt MD [address] [place] [address] Prior Authorization (Maryjane Duarte ) Social History Tobacco Use Types Packs/Day Years Used Date Smoking Tobacco: Every Day Cigarettes 0.5 41 Started: 02/22/1984 Smokeless Tobacco: Never Alcohol Use Standard Drinks/Week Comments Yes 6 (1 standard drink = 0.6 oz pur e alcohol) PHQ-2 Answer Date Recorded Retired PHQ-9: Brief Depression Severity Measure Score 0 05/18/2023 PHQ-2 Answer Date Recorded Patient Health Questionnaire-2 Score 0 07/25/2024 Comments Unknown Sex and Gender Information Value Date Recorded Sex Assigned at Female 01/25/2025 12:00 PM EDT Legal Sex Female 3:57 PM EDT Gender Identity Not on file Sexual Orientation Straight 01/25/2025 12 :00 PM EDT documented as of this encounter Miscellaneous Notes * Telephone Encounter - Seema Larson MA - 01/01/2025 3:10 PM EDT Submitted prior auth for Maryjane Duarte [id number] via Cover My Meds ([place]: [id number]) Information regarding your request The patient currently has access to the requested medication and a Prior Authorization is not needed for the patient/medication. documented in this encounter Plan of Treatment Upcoming Encounters Date Type Department Care Team (Late st Contact Info) Description 02/24/2025 2:15 PM EDT Appointment [facility] [address] [place] [address] 07/31/2025 9:00 AM EST Office Visit [facility] [address] [place] [address] Nitish Betancourt MD [address] [place] [address] 01/29/2026 9:15 AM EDT Office Visit [facility] [address] [place] [address] Nitish Betancourt MD [address] [place] [address] documented as of this encounter Visit Diagnoses Not on filedocumented in this encounter Care Teams Auto Damage Appraiser Relationship Specialty Start Date End Date Nitish Betancourt MD [address] [place] [address] PCP - General Family Medicine 01/05/22 documented as of this encounter
--- OUTSIDE RECORDS SUMMARY | 2025-02-10 14:56 | XMS_ITS | Clinical Summary ---
Author Organization Healthcare Address [address] [place] [address] Care Team Providers Care Patient Assessment Coordinator Name Role Phone Unavailable Primary Care Provider Unavailabl e Social History Tobacco Use Types Packs/Day Years Used Date Smoking Tobacco: Every Day Comments Unknown Sex and Gender Information Value Date Recorded Sex Assigned at Not on file Legal Sex Female 8:30 PM EDT Gender Identity Not on file Sexual Orientation Not on file Last Filed Vital Signs Vital Sign Reading Time Taken Comments Blood Pressure - - Pulse - - Temperature - - Respiratory Rate - - Oxygen Saturation - - Inhaled Oxygen Concentration - - Weight 64.4 kg (142 lb) 10/20/2014 1:38 PM EDT Height 160 cm (5' 3 ) 10/20/2014 1:38 PM EDT Body Mass Index 25.15 10/20/2014 1:38 PM EDT Plan of Treatment Not on file
--- OUTSIDE RECORDS SUMMARY | 2025-02-10 14:56 | XMS_ITS | Clinical Summary ---
[facility] Address [address] [place] [address] Care Team Providers Care Operating Room Orderly Name Role Phone Nitish Betancourt MD Primary Care Provider + Allergies No known active allergies Medications albuterol sulfate HFA 108 (90 Base) MCG/ACT inhalerIndicatio ns:Non-seasonal allergic rhinitis due to pollen,Chronic obstructive pulmonary disease, unspecified COPD type INHALE 2 PUFFS BY MOUTH EVERY 4 HOURS NEEDED FOR WHEEZING 18 g 2 5 Active amLODIPine-benaz epril (LOTREL 5-20) 5-20 MG per capsuleIndicatio ns:Essential hypertension Take 1 capsule by mouth Daily. 90 capsule 5 Active escitalopram (LEXAPRO) 5 MG tabletIndication s:Mild depression Take 1 tablet by mouth Daily. 90 tablet 3 5 Active Fluticasone-Umec lidin-Vilant (Trelegy Ellipta) 100-62.5-25 MCG/ACT inhaler Inhale 1 puff Daily. 1 each 11 5 Active lansoprazole (PREVACID) 30 MG capsuleIndicatio ns:Gastroesophag eal reflux disease without esophagitis Take 1 capsule by mouth Daily. 90 capsule 3 5 Active montelukast (SINGULAIR) 10 MG tabletIndication s:Non-seasonal allergic rhinitis due to pollen Take 1 tablet by mouth Every Night. 90 tablet 3 5 Active oxazepam (SERAX) 10 MG capsuleIndicatio ns:Anxiety Take 1 capsule by mouth 2 (Two) Times a Day As Needed for Anxiety. 60 capsule 5 5 Active rosuvastatin (CRESTOR) 20 MG tabletIndication s:Hypercholester olemia,Chronic obstructive pulmonary disease, unspecified COPD type Take 1 tablet by mouth Daily. 90 tablet 3 5 Active Fluticasone-Umec lidin-Vilant (Trelegy Ellipta) 100-62.5-25 MCG/ACT inhaler Inhale 1 puff Daily. 1 each 11 4 01/28/20 25 Discontinu ed(Reorder ) oxazepam (SERAX) 10 MG capsuleIndicatio ns:Anxiety TAKE 1 CAPSULE BY MOUTH 3 TIMES A DAY NEEDED FOR ANXIETY 90 capsule 5 5 01/28/20 25 Discontinu ed(Reorder ) rosuvastatin (CRESTOR) 20 MG tabletIndication s:Hypercholester olemia TAKE 1 TABLET BY MOUTH DAILY 90 tablet 5 01/28/20 25 Discontinu ed(Reorder ) amLODIPine-benaz epril (LOTREL 5-20) 5-20 MG per capsuleIndicatio ns:Essential hypertension TAKE 1 CAPSULE BY MOUTH DAILY 90 capsule 5 01/28/20 25 Discontinu ed(Reorder ) escitalopram (LEXAPRO) 5 MG tabletIndication s:Mild depression TAKE 1 TABLET BY MOUTH DAILY 90 tablet 5 01/28/20 25 Discontinu ed(Reorder ) lansoprazole (PREVACID) 30 MG capsuleIndicatio ns:Gastroesophag eal reflux disease without esophagitis TAKE 1 CAPSULE BY MOUTH DAILY 90 capsule 5 01/28/20 25 Discontinu ed(Reorder ) montelukast (SINGULAIR) 10 MG tabletIndication s:Non-seasonal allergic rhinitis due to pollen TAKE ONE TABLET BY MOUTH ONCE NIGHTLY 90 tablet 5 01/28/20 25 Discontinu ed(Reorder ) Active Problems Problem Noted Date Diagnosed Date Hypercholesterolemia 06/30/2023 Assessment & Plan (01/27/2025 11:33 AM EDT): {Hyperlipidemia A/P Block (Optional):[id number]} Orders: rosuvastatin (CRESTOR) 20 MG tablet; Take 1 tablet by mouth Daily. Assessment & Plan (06/30/2023 10:10 AM EST): Lipid abnormalities are improving with treatment. Pharmacotherapy as ordered. Lipids will be reassessed in 6 months. Cigarette smoker 01/05/2022 Assessment & Plan (01/27/2025 11:33 AM EDT): Assessment & Plan (06/30/2023 10:09 AM EST): Patient is reduce cigarette use to 5 cigarettes/day. Continue Chantix Gastroesophageal reflux disease without esophagi tis 01/05/2022 Assessment & Plan (01/27/2025 11:33 AM EDT): Orders: lansoprazole (PREVACID) 30 MG capsule; Take 1 capsule by mouth Daily. Assessment & Plan (06/30/2023 10:09 AM EST): Well-controlled with Prevacid. Prior attempts to stop medication have resulted in return of symptoms Anxiety 01/05/2022 Assessment & Plan (01/27/2025 11:33 AM EDT): Orders: oxazepam (SERAX) 10 MG capsule; Take 1 capsule by mouth 2 (Two) Times a Day As Needed for Anxiety. Chronic obstructive pulmonary disease 01/05/2022 Assessment & Plan (01/27/2025 11:33 AM EDT): {COPD A/P Block (Optional):35533} Orders: rosuvastatin (CRESTOR) 20 MG tablet; Take 1 tablet by mouth Daily. Assessment & Plan (06/30/2023 10:09 AM EST): COPD is improving with treatment. Continue current medications. Essential hypertension 01/05/2022 Assessment & Plan (01/27/2025 11:33 AM EDT): {Hypertension is (optional):[id number]} Orders: amLODIPine-benazepril (LOTREL 5-20) 5-20 MG per capsule; Take 1 capsule by mouth Daily. Assessment & Plan (06/30/2023 10:09 AM EST): Hypertension is improving with treatment. Continue current treatment regimen. Blood pressure will be reassessed at the next regular appointment. Non-seasonal allergic rhinitis due to pollen Assessment & Plan (01/27/2025 11:33 AM EDT): Orders: montelukast (SINGULAIR) 10 MG tablet; Take 1 tablet by mouth Every Night. Encounters Date Type Department Care Team Description 01/27/2025 10:15 AM EDT Office Visit [facility] [address] [place] [address] Nitish Betancourt MD Medicare annual wellness visit, subsequent (Primary Dx); Essential hypertension; Mild depression; Gastroesophageal reflux disease without esophagitis; Non-seasonal allergic rhinitis due to pollen; Anxiety; Hypercholesterolemia; Chronic obstructive pulmonary disease, unspecified COPD type; Annual physical exam; Personal history of nicotine dependence; Cigarette smoker; Encounter for screening mammogram for malignant neoplasm of breast; Encounter for screening for lung cancer 01/27/2025 Travel 01/03/2025 Refill [facility] [address] [place] [phone] Nitish Betancourt MD Essential hypertension; Mild depression; Gastroesophageal reflux disease without esophagitis; Non-seasonal allergic rhinitis due to pollen 01/01/2025 Telephone [facility] [address] [place] [phone] Nitish Betancourt MD Prior Authorization (Maryjane Ellipta ) 11/17/2024 Refill [facility] [address] [place] [address] Nitish Betancourt MD Hypercholesterolemia from Last 3 Months Immunizations Immunization Administration Dates Next Due ABRYSVO (RSV, 60+ or pregnan t women 32-36 wks) 06/01/2023 COVID-19 (PFIZER) Purple Cap Monovalent 06/23/20 21,10/21/2020,09/26/2020 Flublok 18+yrs 06/07/2022 Fluzone (or Fluarix & Flulav al for VFC) >6mos 05/11/2023,06/23/2021,04/17/2017 Influenza, Unspecified 05/11/2023,06/23/2021, PCV21 (CAPVAXIVE) 01/27/2025 Pneumococcal Polysaccharide (PPSV23) 03/18/2016 Tdap 12/03/2013 Family History Medical History Relation Name Comments Heart attack Father Andre Heart disease Father Andre Hypertension Father Andre COPD Mother Roselia Hypertension Mother Roselia Relation Name Status Comments Father Andre Mother Roselia Social History Tobacco Use Types Packs/Day Years [...] Orientation Straight 01/25/2025 12 :00 PM EDT Last Filed Vital Signs Vital Sign Reading [...] Mass Index 21.22 01/27/2025 10:09 AM EDT Plan of Treatment Upcoming Encounters Date Type Department Care Team (Late st Contact Info) Description 02/24/2025 2:15 PM EDT Appointment [facility] [address] [address] 07/31/2025 9:00 AM EST Office Visit [facility] [address] [place], [place] [address] Nitish Betancourt MD [address] [place] [address] 01/29/2026 9:15 AM EDT Office Visit [facility] [address] [place], [place] [address] Nitish Betancourt MD [address] [place] [address] Health Maintenance Due Date Last Done Comments Annual Gynecologic Pelvic and Breast Exam 1960 COLOGUARD 2007 COLON CANCER SCREENING [address] COLONOGRAPHY 2007 FECAL OCCULT BLOOD TEST 2007 FIT Testing (1 year) 2007 ZOSTER VACCINE (1 of 2) 2012 HEPATITIS C SCREENING 12/02/2021 TDAP/TD VACCINES (2 - Td or Tdap) 12/04/2023 12/03/2013 LUNG CANCER SCREENING 02/01/2025 02/02/2024 COVID-19 Vaccine ( season) 2025 06/07/2022, 06/23/2021, 10/21/2020, Additional history exists Postponed from 03/24/2024 (Product Unavailable) INFLUENZA VACCINE 04/23/2025 05/11/2023, , 05/11/2023, Additional history exists LIPID PANEL 07/25/2025 07/25/2024, 06/02/2024, 06/30/2023, Additional history exists MAMMOGRAM 08/17/2025 08/17/2023, 08/17/2023 ANNUAL WELLNESS VISIT 01/27/2026 01/27/2025, 025 COLONOSCOPY 10/04/2032 10/04/2022, 10/04/2022 COLORECTAL CANCER SCREENING 10/04/2032 Pneumococcal Vaccine 50+ Completed 01/27/2025, 02/22 Procedures Procedure Name Priority Date/Time Associated Diagnosis Comments LIPID PANEL Routine 07/25/2024 11:21 AM EST Hypercholesterolemi a CT CHEST LOW DOSE WO CANCER SCREENING Routine 02/02/2024 11:38 AM EDT Personal history of nicotine dependence Encounter for screening for lung cancer SCANNED - MAMMO 08/17/2023 SCANNED - COLONOSCOPY 10/04/2022 from Last 3 Months or Most Recently Relevant to Health Maintenance Results * (ABNORMAL) Lipid Panel (07/25/2024 11:21 AM EST) Total Cholesterol 198 0 - 200 mg/dL [facility] Comment: Cholesterol Reference Ranges (U.S. Department of Health and Human Services ATP III Classifications) Desirable <200 mg/dL Borderline High 200-239 mg/dL High Risk >240 mg/dL Triglyceride Reference Ranges (U.S. Department of Health and Human Services ATP III Classifications) Normal <150 mg/dL Borderline High 150-199 mg/dL High 200-499 mg/dL Very High >500 mg/dL HDL Reference Ranges (U.S. Department of Health and Human Services ATP III Classifications) Low <40 mg/dl (major risk factor for CHD) High >60 mg/dl ('negative' risk factor for CHD) LDL Reference Ranges (U.S. Department of Health and Human Services ATP III Classifications) Optimal <100 mg/dL Near Optimal 100-129 mg/dL Borderline High 130-159 mg/dL High 160-189 mg/dL Very High >189 mg/dL Triglycerides 128 0 - 150 mg/dL [facility] HDL Cholesterol 89(H) 40 - 60 mg/dL [facility] VLDL Cholesterol Juan R 22 5 - 40 mg/dL [facility] LDL Chol Calc (NIH) 87 0 - 100 mg/dL [facility] Blood 07/25/2024 11:2 1 AM EST 07/25/2024 Narrative [facility] (AMBULATORY) - 07/25/2024 8:07 PM EST Performed at: [address] [place] [id number] Senior Research Project Manager: Ry Stephens MD, Phone: [phone] Patient Fasting: Y Nitish Betancourt MD LAB BLOOD ORDERABLES Fin al Result [facility] (AMBULATORY) [address] [place] [address], [facility] [address] [place] [address], * CT Chest Low Dose Cancer Screening WO (02/02/2024 11:38 AM EDT) Anatomical Region Laterality Modality Chest Computed Tomogra phy 02/05/2024 2:09 PM EDT Impressions 02/05/2024 2:15 PM EDT 3 mm pulmonary nodules Recommendation: Continue annual screening with LDCT Lung Rads Assessment: Lung-RADS L2 - Benign appearance or <1% chance of malignancy. Electronically Signed: Nitish Quick 02/05/2024 2:15 PM EDT Workstation ID: [id number] Narrative 02/05/2024 2:[address] CHEST LOW DOSE CANCER SCREENING WO Date of Exam: 02/02/2024 11:35 AM EDT Indication: . Comparison: None available. Technique: Low dose CT imaging of the chest was performed without intravenous contrast enhancement. Automated exposure control and iterative reconstruction methods were used. Findings: Jane/mediastinum: No adenopathy. Mild coronary artery calcification Lungs/pleura: 3 mm nodules in the right upper lobe (#57, 94) and left lower lobe (#232, 234). Calcified granuloma in the right upper lobe. No acute abnormality Upper Abdomen: Unremarkable Bones/soft tissues: No suspicious bone lesion Procedure Note Nitish Quick MD - 02/05/2024 CT CHEST LOW DOSE CANCER SCREENING WO Date of Exam: 02/02/2024 11:35 AM EDT Indication: . Comparison: None available. Technique: Low dose CT imaging of the chest was performed withoutintravenous contrast enhancement. Automated exposure control anditerative reconstruction methods were used. Findings: Jane/mediastinum: No adenopathy. Mild coronary artery calcification Lungs/pleura: 3 mm nodules in the right upper lobe (#57, 94) and leftlower lobe (#232, 234). Calcified granuloma in the right upper lobe. Noacute abnormality Upper Abdomen: Unremarkable Bones/soft tissues: No suspicious bone lesion IMPRESSION: 3 mm pulmonary nodules Recommendation: Continue annual screening with LDCT Lung Rads Assessment: Lung-RADS L2 - Benign appearance or <1% chance of malignancy. Electronically Signed: Nitish Quick 02/05/2024 2:15 PM EDT Workstation ID: [id number] Nitish Betancourt MD [facility] ORDERABLES Final Result * SCANNED - MAMMO (08/17/2023) Anatomical Region Laterality Modality Other Nitish Betancourt MD CHART REVIEW TABS Fin al Result * SCANNED - COLONOSCOPY (10/04/2022) Nitish Betancourt MD CHART REVIEW TABS Fin al Result from Last 3 Months or Most Recently Relevant to Health Maintenance Insurance [employer] MED[employer]ARE [employer] PPO Care Teams Operating Room Orderly Relationship Specialty Start Date End Date Nitish Betancourt MD [address] [place], [place] [id number] PCP - General Family Medicine 01/05/22
--- OUTSIDE RECORDS SUMMARY | 2025-02-10 14:56 | XMS_ITS | Encounter Summary ---
[facility] [address] [place] [address] Care Team Providers Care Replenishment Specialist Name Role Phone Nitish Betancourt MD Primary Care Provider + Encounter Details Date Type Department Care Team (Latest Contact Info) Description 01/27/2025 Travel Social History Tobacco Use Types Packs/Day Years [...] PM EDT documented as of this encounter Functional Status documented as of this encounter Plan of Treatment Upcoming Encounters Date Type Department Care Team (Late st Contact Info) Description 02/24/2025 2:15 PM EDT Appointment [facility] [address] [place] [address] 07/31/2025 9:00 AM EST Office Visit [facility] [address] [place] [address] Nitish Betancourt MD [address] [place] [address] 01/29/2026 9:15 AM EDT Office Visit [facility] [address] [place] [phone] Nitish Betancourt MD [address] [place] [address] documented as of this encounter Visit Diagnoses Not on filedocumented in this encounter Care Teams Replenishment Specialist Relationship Specialty Start Date End Date Nitish Betancourt MD [address] [place] [address] PCP - General Family Medicine 01/05/22 documented as of this encounter
--- OUTSIDE RECORDS SUMMARY | 2025-02-10 14:56 | XMS_ITS | Encounter Summary ---
[facility] [address] [place] [address] Care Team Providers Care Computer System Validation Specialist Name Role Phone Nitish Betancourt MD Primary Care Provider + Reason for Visit * Reason Comments Med Refill Encounter Details Date Type Department Care Team (Late Contact Info) Description 01/03/2025 Refill [facility] [address] [place] [address] Nitish Betancourt MD [address] [place] [address] Essential hypertension; Mild depression; Gastroesophageal reflux disease without esophagitis; Non-seasonal allergic rhinitis due to pollen Social History Tobacco Use Types Packs/Day Years [...] PM EDT documented as of this encounter Plan of Treatment Upcoming Encounters Date Type Department Care Team (Late Contact Info) Description 02/24/2025 2:15 PM EDT Appointment [facility] [address] [address] 07/31/2025 9:00 AM EST Office Visit [facility] [address], [place] [address] Nitish Betancourt MD [address] [place] [address] 01/29/2026 9:15 AM EDT Office Visit [facility] [address] [place] [address] Nitish Betancourt MD [address] [place] [address] documented as of this encounter Visit Diagnoses Diagnosis Essential hypertension Unspecified essential hypertension Mild depression Depressive disorder, not elsewhere classified Gastroesophageal reflux disease without esophagitis Esophageal reflux Non-seasonal allergic rhinitis due to pollen documented in this encounter Care Teams Computer System Validation Specialist Relationship Specialty Start Date End Date Nitish Betancourt MD [address] [place] [address] PCP - General Family Medicine 01/05/22 documented as of this encounter
== END 2025-02-10 23:59 | disposition home or self-care (01) ==
LOC: RAD 14:54
PROVIDERS: PCP Family Medicine; Visit Provider Family Medicine
DX: Z12.31 Encounter for screening mammogram for malignant neoplasm of breast (principal); R92.323 Mammographic fibroglandular density, bilateral breasts
CPT/HCPCS: 77063; 77067